=== PATIENT | female | born 1990 | race Caucasian/White ===

== ENCOUNTER 2021-07-07 13:59 | Emergency (ER) | payer SELFPAY ==
[2021-07-07 14:06] VITALS: BP 135/88; PULSE 91; RESP 18; TEMP 36.4; O2SAT 97; BMI 23.8
--- NOTE | 2021-07-07 14:19 | HMH.EDGENADL ---
ED Disposition Clinical Impression: Pyelonephritis Disposition: Home, Self-Care Condition on Discharge: Good Instructions: Kidney Infection Additional Instructions: Please take the cefdinir as prescribed. Please take tylenol and ibuprofen for comfort. You have also been given toradol for comfort. Please follow up with your primary care physician for further management in 2-3 days. Please return if symptoms worsen such as vomiting, fevers, worsening abdominal pain or any other concerning symptoms. Prescriptions: Cefdinir [Omnicef 300mg Capsule] 300 mg PO BID #20 cap Prescription Printed Referrals: Provider,Referral, [Primary Care Provider] - Time of Disposition: 16:35 - Critical Care Critical Care Time: No Attestation: On , the high probability of a clinically significant, sudden or life threatening deterioration of the following system(s) required my full and direct attention, intervention and personal management. The time I documented below is in addition to time spent performing reported procedures but includes the following listed in this critical care notation. Medical Decision Making - Medical Records Medical records reviewed: Yes: I reviewed the patient's medical records. - Timmy Inquiry Pt receiving controlled substance: No Vital Signs: 07/07/21 14:06 07/07/21 16:22 Temperature 97.5 F L 97.5 F L Temperature Source Oral Temporal Artery Scan Pulse Rate 88 Pulse Rate [Right Brachial] 91 H Respiratory Rate 18 16 Blood Pressure 118/72 Blood Pressure [Right Arm] 135/88 Blood Pressure Mean [Right Arm] 103 Blood Pressure Source Automatic Cuff Blood Pressure Source [Right Arm] Automatic Cuff Blood Pressure Position Sitting Blood Pressure Position [Right Arm] Sitting 02 Sat by Pulse Oximetry 97 Oxygen Delivery Method Room Air Room Air - Lab Data Lab results reviewed: Yes: I reviewed the patient's lab results. Lab Results 07/07/21 14:22: WBC 4.3 L, RBC 4.24, Hgb 13.3, Hct 41.8, MCV 98.5, MCH 31.4 H, MCHC 31.9, RDW 14.3, Plt Count 173, MPV 9.7, Neut % (Auto) 63.9, Lymph % (Auto) 29.4, [place] % (Auto) 4.3, Eos % (Auto) 1.4, Baso % (Auto) 1.0, Neut # (Auto) 2.8, Lymph # (Auto) 1.3, [place] # (Auto) 0.2, Eos # (Auto) 0.1, Baso # (Auto) 0.0 07/07/21 14:22: Sodium 140, Potassium 3.4 L, Chloride 105, Carbon Dioxide 28, Anion Gap 10.4, BUN 13, Creatinine 0.80, Estimated Creat Clear 97, Estimated GFR 85, Est GFR ( Amer) 103, Glucose 90, Calcium 8.8, Total Bilirubin 0.1 L, AST 29, ALT 14, Alkaline Phosphatase 33 L, Total Protein 7.1, Albumin 4.5, Globulin 2.6, Albumin/Globulin Ratio 1.7, Amylase 63, Lipase 82 07/07/21 14:22: Urine HCG, Qual Negative 07/07/21 14:22: Urine Color Yellow, Urine Appearance Clear, Urine pH 5.0, Ur Specific [place] >= 1.030, Urine Protein 3+, Urine Glucose (UA) Trace, Urine Ketones Trace, Urine Blood 2+, Urine Nitrate Positive, Urine Bilirubin 2+ A, Urine Urobilinogen >=8.0, Ur Leukocyte Esterase Trace, Urine RBC 10-20, Urine WBC 3-5, Ur Squamous Epith Cells 3-5, Urine Bacteria 1+ Result diagrams: 07/07/21 14:22 07/07/21 14:22 Orders (Tests/Meds): ED MEDICATIONS Discontinued Medications Generic Name Dose Route Start Last Admin Trade Name Freq PRN Reason Stop Dose Admin Ketorolac Tromethamine 30 mg 07/07/21 14:21 07/07/21 14:26 Ketorolac 30mg/Ml Vial IV 07/07/21 14:22 30 mg ONCE ONE Administration Medical Decision Narrative: Mrs. Enamorado is a 30-year-old female with past medical history for recurrent nephrolithiasis who presents to the emergency department with left flank pain for 3 days. Patient is afebrile and hemodynamically stable on arrival. Physical exam remarkable for well-appearing female nontoxic with no CVA tenderness on exam. Patient's abdomen is soft nondistended nonperitoneal ache. Patient denies any systemic signs of infection. Differentials to consider but not limited to include; UTI/pyelonephritis, nephrolithiasis, MSK, pregna
[2021-07-07 14:32] LABS: Appearance,Urine CLEAR (Clear); Blood, Urine 2+ (Negative); Color,Urine YELLOW (Yellow); Glucose,Urine (UA) TRACE (Negative); Ketones,Urine TRACE (Negative); Leukocyte Esterase,Urine TRACE (Negative); Microscopic, Urine URINE MICROSCOPIC (MICROSCOPIC); Nitrate,Urine POSITIVE (Negative); Protein,Urine 3+ (Negative); Specific Gravity, Urine >= 1.030 (1.005-1.030); Urobilinogen,Urine >=8.0 EU/dl (0.2)
[2021-07-07 14:34] LABS: Urine Pregnancy, HCG Qual. Negative (Negative)
[2021-07-07 14:39] LABS: Chloride 105 mmol/L (98-107); Eosinophils # 0.1 K/mm3 (0.0-0.4); Eosinophils % 1.4 % (0.1-12.0); Hematocrit 41.8 % (37.0-47.0); Hemoglobin 13.3 g/dL (12.2-16.2); Lymphocytes # 1.3 K/mm3 (0.7-4.5); Lymphocytes % 29.4 % (10-50); Mean Corpuscular HGB Conc 31.9 g/dL (31.8-35.4); Mean Corpuscular Hemoglobin 31.4 pg (27.0-31.2); Mean Corpuscular Volume 98.5 fl (81-99); Mean Platelet Volume 9.7 fl (7.4-10.4); Monocytes # 0.2 K/mm3 (0.1-1.0); Monocytes % 4.3 % (1.7-9.3); Neutrophils # 2.8 K/mm3 (1.8-7.8); Neutrophils % 63.9 % (37.0-80.0); Platelet Count 173 K/mm3 (142-424); Potassium 3.4 mmoL/L (3.5-5.1); Red Blood Count 4.24 M/mm3 (4.20-5.40); Red Cell Distribution Width 14.3 % (11.5-17.5); Sodium 140 mmol/L (136-145); White Blood Count 4.3 K/mm3 (4.8-10.8)
[2021-07-07 14:41] LABS: Amylase 63 U/L (30-110)
[2021-07-07 14:42] LABS: Alanine Aminotransferase 14 U/L (12-78); Albumin Level 4.5 g/dl (3.5-5.0); Alkaline Phosphatase 33 U/L (38-126); Anion Gap 10.4 mEq/L (5-15); Aspartate Amino Transferase 29 U/L (14-36); Bilirubin,Total 0.1 mg/dl (0.2-1.3); Blood Urea Nitrogen 13 mg/dl (7-17); Calcium 8.8 mg/dl (8.4-10.2); Carbon Dioxide 28 mmol/L (22.0-30.0); Creatinine Clearance Estimated 97 mL/min (50-200); Estimated Glomerular Filt Rate 85 ml/min (>60); GFR (African American) 103 ML/MIN (>60); Glucose 90 mg/dl (74-100); Lipase 82 U/L (23-300)
[2021-07-07 14:46] LABS: Bilirubin,Urine 2+ (Negative)
[2021-07-07 14:47] LABS: Bacteria,Urine 1+ /lpf
[2021-07-07 15:16] LABS: Albumin/Globulin Ratio 1.7 (1.1-1.8); Globulin 2.6 g/dL (1.3-3.2); Total Protein,Serum 7.1 g/dl (6.3-8.2)
[2021-07-07 16:22] VITALS: BP 118/72; PULSE 88; RESP 16; TEMP 36.4; O2SAT 99
== END 2021-07-07 16:23 | disposition home or self-care (01) ==
PROVIDERS: Emergency Provider Student in an Organized Health Care Education/Training Program
DX: N12 Tubulo-interstitial nephritis, not specified as acute or chronic (principal); Z87.442 Personal history of urinary calculi; Z88.0 Allergy status to penicillin
CPT/HCPCS: 80053; 81001; 81025; 82150; 83690; 85025; 96374; 99282

== ENCOUNTER 2023-01-17 13:34 | Emergency (ER) | payer MEDICAID, SELFPAY ==
[2023-01-17 13:52] VITALS: BP 126/73; PULSE 88; RESP 20; TEMP 36.9; O2SAT 99; BMI 26.5
[2023-01-17 13:53] VITALS: BMI 26.5
[2023-01-17 14:15] LABS: Strep Scrn Group A (Rapid) Positive (Negative)
--- NOTE | 2023-01-17 14:35 | HMH.EDGENADL ---
Discharge Plan Disposition Patient Disposition: Home, Self-Care Condition: Good Chief Complaint: Upper Respiratory Infection Prescriptions Prescriptions: New cefdinir 300 mg capsule 300 mg PO BID 10 Days Qty: 20 0RF No Action cefdinir 300 MG capsule 300 mg PO BID Qty: 20 0RF Referrals Follow up/Referrals: Provider,Referral, MD [Primary Care Provider] - See instructions Activity Restrictions/Add. Instructions Additional Instructions/Restrictions: Motrin/Tylenol as needed. Follow-up PCP in 1 to 2 days. Antibiotics as directed Clinical Impressions Clinical Impression: Pharyngitis due to group A beta hemolytic Streptococci Discharge ED Provider: Fidel Cline General Adult HPI General Chief complaint: Upper Respiratory Infection Stated complaint: sore throat Time Seen by Provider: 01/17/23 14:32 Mode of Arrival: Ambulatory Source of Information: Patient Limitations: No Limitations Description of Symptoms (Recalled from ER Triage Doc. by RN): pt to ed c/o sore throat and non-productive cough x2 days. History of Present Illness HPI narrative: 32yo F presents the ER secondary to sore throat and nonproductive cough x2 days. Denies fever. Concern for strep throat. No history of group a strep pharyngitis, no known sick contact. Reports pain with swallowing Related Data Previous Rx's Medication Instructions Recorded cefdinir 300 mg capsule 300 mg PO BID #20 caps 07/07/21 cefdinir 300 mg capsule 300 mg PO BID 10 days #20 caps 01/17/23 Allergies Allergy/AdvReac Type Severity Reaction Status Date / Time Penicillins Allergy Verified 07/07/21 14:11 [facility] Disclaimer: The information contained in this section may have been updated after the patient was seen, as this information can be updated by other users. Social History Smoking Status: Current every day smoker alcohol intake: never current occupational status: other Travel in the last 8 weeks: None ROS Obtained: Yes Systems reviewed as appropriate & no additional complaints except as documented Physical Exam General General appearance: alert and in no apparent distress Head Head exam: atraumatic and normocephalic Eye Eye exam: Present PERRL ENT ENT exam: Present mucous membranes moist and other; Absent normal oropharynx (Erythematous posterior pharynx with mild exudate) Neck Neck exam: Present trachea midline, tenderness and lymphadenopathy (Left) Respiratory Respiratory exam: Present normal lung sounds bilaterally; Absent respiratory distress Cardiovascular Cardiovascular exam: Present regular rate and normal rhythm Abdominal Exam Abdominal exam: Present soft; Absent distention Extremities Exam Extremities exam: Present normal capillary refill; Absent tenderness Neurological Exam Neurological exam: Present alert, oriented X3 and CN II-XII intact Skin Skin exam: Present warm and dry Medical Decision Making Medical Records Medical records reviewed: Yes I reviewed the patient's medical records. Timmy Inquiry Pt receiving controlled substance: No Vital Signs: 01/17/23 13:52 Temperature 98.4 F Temperature Source Oral Pulse Rate [Left Radial] 88 Respiratory Rate 20 Blood Pressure [Right Arm] 126/73 Blood Pressure Mean [Right Arm] 90 02 Sat by Pulse Oximetry 99 Oxygen Delivery Method Room Air Lab Data Lab results reviewed: Yes I reviewed the patient's lab results. Lab Results 01/17/23 13:50: Group A Strep Rapid Positive A Orders (Tests/Meds): ORDERS Category Date Time Status Strep Scrn Group A (Rapid) Stat Lab 01/17/23 13:50 Completed Medical Decision Narrative: 32yo F evaluated for strep throat. Group A strep swab obtained through triage and positive. Patient is allergic to penicillin but has tolerated cefdinir in the past. Cefdinir 300 mg twice daily x10-day provided. Encouraged to follow-up with PCP in 1 to 2 days.
[2023-01-17 14:45] VITALS: BP 122/70; PULSE 80; RESP 16; TEMP 36.7; O2SAT 99
== END 2023-01-17 14:45 | disposition home or self-care (01) ==
PROVIDERS: Emergency Provider Family Medicine
DX: J02.0 Streptococcal pharyngitis (principal); F17.200 Nicotine dependence, unspecified, uncomplicated
CPT/HCPCS: 87430; 99283; 99284

== ENCOUNTER 2023-08-07 07:09 | Emergency (ER) | payer MEDICAID, SELFPAY ==
[2023-08-07 07:12] VITALS: BP 125/77; PULSE 84; O2SAT 98
--- NOTE | 2023-08-07 07:13 | HMH.EDGENADL ---
Discharge Plan Disposition Patient Disposition: Home, Self-Care Condition: Good Chief Complaint: Dental/Oral Prescriptions Prescriptions: No Action cefdinir 300 MG capsule 300 mg PO BID Qty: 20 0RF cefdinir 300 mg capsule 300 mg PO BID 10 Days Qty: 20 0RF Referrals Follow up/Referrals: Dov Keys MD [Primary Care Provider] - See instructions Clinical Impressions Clinical Impression: Dental abscess Instructions Patient Instructions: Tooth Abscess Discharge ED Provider: Dinora Johnson General Adult HPI General Chief complaint: Dental/Oral Stated complaint: right side swollen on face abcest tooth pain Time Seen by Provider: 08/07/23 07:12 History of Present Illness HPI narrative: 32-year-old female with no significant past medical history coming into the ED with complaints of right-sided facial swelling. Patient notes that since yesterday, she has been experiencing a right upper dental pain. Patient was concerned by an abscess and thus went to her primary care doctor started on clindamycin. This morning, upon awakening, patient noted significant right-sided facial swelling in her right-sided infraorbital region. Patient notes her cheek is more erythematous and swollen. Patient denies any pain with extraocular movements. Related Data Previous Rx's Medication Instructions Recorded cefdinir 300 mg capsule 300 mg PO BID #20 caps 07/07/21 cefdinir 300 mg capsule 300 mg PO BID 10 days #20 caps 01/17/23 Allergies Allergy/AdvReac Type Severity Reaction Status Date / Time Penicillins Allergy Verified 07/07/21 14:11 [facility] Disclaimer: The information contained in this section may have been updated after the patient was seen, as this information can be updated by other users. Social History (Updated 01/17/23 @ 14:40 by Fidel Cline DO) Smoking Status: Never smoker alcohol intake: never current occupational status: other Travel in the last 8 weeks: None ROS Obtained: Yes All systems reviewed & no additional complaints except as documented Physical Exam General General appearance: alert and in no apparent distress Head Head exam: atraumatic, normocephalic and normal inspection Eye Eye exam: Present normal appearance, PERRL and EOMI; Absent scleral icterus or nystagmus ENT ENT exam: Present normal exam, mucous membranes moist and normal external ear exam Neck Neck exam: Present normal inspection, full ROM and trachea midline Chest Chest inspection: Present normal inspection and symmetric chest wall rise; Absent tenderness Respiratory Respiratory exam: Present normal lung sounds bilaterally; Absent respiratory distress, wheezes or accessory muscle use Cardiovascular Cardiovascular exam: Present regular rate, normal rhythm and normal heart sounds Abdominal Exam Abdominal exam: Present soft; Absent distention, tenderness, guarding, rebound, rigidity, trauma, ascites or pulsatile mass Extremities Exam Extremities exam: Present normal inspection and full ROM; Absent tenderness Back Exam Back exam: Present normal inspection and full ROM; Absent tenderness Neurological Exam Neurological exam: Present alert, oriented X3 and normal gait; Absent motor sensory deficit Psychiatric Psychiatric exam: Present normal affect and normal mood Skin Skin exam: Present warm, dry, normal color and erythema (Swelling and erythema to R face) Medical Decision Making Medical Records Medical records reviewed: Yes I reviewed the patient's medical records. Timmy Inquiry Pt receiving controlled substance: No Vital Signs: 08/07/23 07:14 08/07/23 07:12 Temperature 97.7 F Temperature Source Oral Pulse Rate 84 Pulse Rate [Right Radial] 84 Respiratory Rate 20 Blood Pressure 125/77 Blood Pressure [Right Arm] 125/77 Blood Pressure Mean [Right Arm] 93 Blood Pressure Source [Right Arm] Automatic Cuff Blood Pressure Position [Right Arm] Sitting 02 Sat by Pulse Oximetry 98 98 Oxygen Delivery Method Room Air Room Air Lab Data Lab results reviewed: Yes I reviewed the patient's lab results. Lab Results 08/07/23 07:24: WBC 6.8, RBC 3.77 L, Hgb 11.5 L, Hct 34.6 L, MCV 91.6, MCH 30.5, MCHC 33.3, RDW 13.8, Plt Count 143, MPV 9.6, Neut % (Auto) 77.6, Lymph % (Auto) 16.3, [place] % (Auto) 4.6, Eos % (Auto) 1.3, Baso % (Auto) 0.3, Neut # (Auto) 5.3, Lymph # (Auto) 1.1, [place] # (Auto) 0.3, Eos # (Auto) 0.1, Baso # (Auto) 0.0, Sodium 139, Potassium 3.4 L, Chloride 106, Carbon Dioxide 27, Anion Gap 9.4, BUN 10, Creatinine 0.60, Estimated Creat Clear 143, Estimated GFR 117, Est GFR ( Amer) 141, Glucose 98, Calcium 8.3 L, Total Bilirubin 0.5, AST 26, ALT 17, Alkaline Phosphatase 41, C-Reactive Protein 56.4 H, Total Protein 6.3, Albumin 3.7, Globulin 2.6, Albumin/Globulin Ratio 1.4, Serum HCG, Qual Negative 08/07/23 07:24 08/07/23 07:24 Orders (Tests/Meds): ED MEDICATIONS Generic Name Dose Route Start Last Admin Trade Name Freq PRN Reason Stop Dose Admin Sodium Chloride 10 ml 08/07/23 08:36 08/07/23 08:37 Sodium Chloride 0.9% 10ml Syr (Rad Only) IV 09/06/23 08:35 10 ml NEEDED PRN Administration Maintain IV Site Discontinued Medications Generic Name Dose Route Start Last Admin Trade Name Freq PRN Reason Stop Dose Admin Iopamidol 100 ml 08/07/23 08:36 08/07/23 08:37 Iopamidol-370 (76%);100ml Bottle IV 08/07/23 08:37 100 ml ONCE ONE Administration ORDERS Category Date Time Status CT facial bones w con Stat Cat Scan 08/07/23 07:16 Completed CBC w/Auto Diff [Complete Blood Count Auto Diff] Stat Lab 08/07/23 07:24 Completed CMP [Comprehensive Metabolic Panel] Stat Lab 08/07/23 07:24 Completed CRP [C-Reactive Protein] Stat Lab 08/07/23 07:24 Completed Serum [HCG Qualitative, Serum] Stat Lab 08/07/23 07:24 Completed Medical Decision Narrative: In summary, 32-year-old female with no significant past medical history coming into the ED with complaints of right-sided facial swelling. Patient notes that since yesterday, she has been experiencing a right upper dental pain. Patient was concerned by an abscess and thus went to her primary care doctor started on clindamycin. This morning, upon awakening, patient noted significant right-sided facial swelling in her right-sided infraorbital region. Patient notes her cheek is more erythematous and swollen. Patient denies any pain with extraocular movements. Patient was afebrile, hemodynamically stable, in no respiratory distress, and nontoxic in appearance upon arrival and throughout the entire stay in the ED. Physical examination was unremarkable aside from significant swelling and erythema to R infraorbital region, no pain with EOMI, including lungs CTAB, normal cardiac auscultation, benign abdominal exam with no focal TTP, and no acute neurological deficit. The DDx includes, but is not limited to, dental abscess vs cavity vs preseptal cellulitis vs orbital celllulitis. All of these have been considered, however ruling out the most morbid conditions drove my clinical assessment and thus the following laboratory and/or radiographic evaluation was conducted to the appropriate extent based on history and physical examination. All ordered laboratory studies independently reviewed and interpreted by myself and pertinent for: - CBC was unremarkable for any actionable leukocytosis, anemia, or thrombocytopenia. - CMP was unremarkable for any actionable electrolyte derangement, elevated creatinine, or transaminitis. - CRP elevated to 56.4 X-ray/CT/US studies independently reviewed and interpreted by myself and notable for: - CT Face w/ con: Small abscess noted approximately 14 x 4 cm in size with surrounding cellulitis, but no obvious cortical bone destruction. At this time, given unremarkable workup and/or symptomatic relief, as well as the fact that patient continued to remain well-appearing, it was felt that the patient was safe to be discharged home with close follow-up with dentistry. Given that the patient was already on clindamycin and started the course yesterday, the need for different antibiotics is deemed unnecessary at this time. The patient/parents were comfortable and in agreement with this plan. Patient instructed to follow up with [employer]/PCP. The patient/parents were given strict return precautions prior to being discharged from the emergency department. All questions were answered. Dinora Johnson MD Emergency Medicine Critical Care Critical Care Time Critical Care Time: No
[2023-08-07 07:14] VITALS: BP 125/77; PULSE 84; RESP 20; TEMP 36.5; O2SAT 98; BMI 26.9
--- NOTE | 2023-08-07 07:16 | CT_ITS ---
FINAL REPORT TECHNIQUE: Multiple axial CT sections were performed through the face with IV contrast. Coronal and sagittal reconstruction images were performed. This study was performed with techniques to keep radiation doses as low as reasonably achievable (ALARA). Individualized dose reduction techniques using automated exposure control or adjustment of mA and/or kV according to the patient's size were employed. CLINICAL HISTORY: Dental abscess, R significant swelling and erythem COMPARISON: None FINDINGS: CT examination of the facial bones and sinuses was obtained in this patient with a history of a right sided dental abscess. There is stranding in the premaxillary region, on the right side, consistent with cellulitis. There is a small abscess along the right maxillary alveolar ridge, paramidline, measuring 14 x 4 mm in size. No obvious cortical destruction is identified. No air-fluid levels are identified in the paranasal sinuses. IMPRESSION: There is a small abscess along the right maxillary alveolar ridge, paramidline, measuring 14 x 4 mm in size, without evidence of obvious cortical bone destruction. Surrounding cellulitis is present. Reviewed, Interpreted and Dictated by Kashif Pack MD Transcribed by Michelle Olivo Authenticated and [facility]
[2023-08-07 07:33] LABS: Basophils % 0.3 % (0.1-2.0); Eosinophils # 0.1 K/mm3 (0.0-0.4); Eosinophils % 1.3 % (0.1-12.0); Hematocrit 34.6 % (37.0-47.0); Hemoglobin 11.5 g/dL (12.2-16.2); Lymphocytes # 1.1 K/mm3 (0.7-4.5); Lymphocytes % 16.3 % (10-50); Mean Corpuscular HGB Conc 33.3 g/dL (31.8-35.4); Mean Corpuscular Hemoglobin 30.5 pg (27.0-31.2); Mean Corpuscular Volume 91.6 fl (81-99); Mean Platelet Volume 9.6 fl (7.4-10.4); Monocytes # 0.3 K/mm3 (0.1-1.0); Monocytes % 4.6 % (1.7-9.3); Neutrophils # 5.3 K/mm3 (1.8-7.8); Neutrophils % 77.6 % (37.0-80.0); Platelet Count 143 K/mm3 (142-424); Red Blood Count 3.77 M/mm3 (4.20-5.40); Red Cell Distribution Width 13.8 % (11.5-17.5); White Blood Count 6.8 K/mm3 (4.8-10.8)
[2023-08-07 07:40] LABS: Alanine Aminotransferase 17 U/L (12-78); Albumin Level 3.7 g/dl (3.5-5.0); Albumin/Globulin Ratio 1.4 (1.1-1.8); Alkaline Phosphatase 41 U/L (38-126); Anion Gap 9.4 mEq/L (5-15); Aspartate Amino Transferase 26 U/L (14-36); Bilirubin,Total 0.5 mg/dl (0.2-1.3); Blood Urea Nitrogen 10 mg/dl (7-17); Calcium 8.3 mg/dl (8.4-10.2); Carbon Dioxide 27 mmol/L (22.0-30.0); Chloride 106 mmol/L (98-107); Creatinine Clearance Estimated 143 mL/min (50-200); Estimated Glomerular Filt Rate 117 ml/min (>60); GFR (African American) 141 ML/MIN (>60); Globulin 2.6 g/dL (1.3-3.2); Glucose 98 mg/dl (74-100); Potassium 3.4 mmoL/L (3.5-5.1); Sodium 139 mmol/L (136-145); Total Protein,Serum 6.3 g/dl (6.3-8.2)
[2023-08-07 07:45] LABS: C-Reactive Protein 56.4 mg/L (0-4)
[2023-08-07 08:23] LABS: HCG Qualitative, Serum Negative (Negative)
[2023-08-07] MEDS: IOPAMIDOL-370 (76%);100ML BOTTLE 100 ML IV (08:37)
[2023-08-07] MEDS: SODIUM CHLORIDE 0.9% 10ML SYR (RAD ONLY) 10 ML IV (08:37)
[2023-08-07 09:58] VITALS: BP 132/67; PULSE 80; RESP 18; TEMP 37.1; O2SAT 99
== END 2023-08-07 09:59 | disposition home or self-care (01) ==
PROVIDERS: Emergency Provider Emergency Medicine; PCP Internal Medicine
DX: L03.211 Cellulitis of face (principal); R22.0 Localized swelling, mass and lump, head
CPT/HCPCS: 70487; 80053; 84703; 85025; 86140; 99285; Q9967

== ENCOUNTER 2024-05-28 16:08 | Emergency (ER) | payer MEDICAID, SELFPAY ==
--- NOTE | 2024-05-28 16:21 | US_ITS ---
PROCEDURE INFORMATION: Exam: US , Transvaginal Exam date and time: 05/28/2024 4:20 PM Age: 33 years old Clinical indication: Lmp or gestational age (in weeks): 10w3d; Other: Bleeding; ; Additional info: Vag bleeding preg, no prior US TECHNIQUE: Imaging protocol: Real-time transvaginal obstetrical ultrasound of the maternal pelvis with image documentation. Transvaginal imaging was used for better evaluation of the fetus, adnexa, and/or cervix. COMPARISON: No relevant prior studies available. FINDINGS: Gestation: There is a single live intrauterine gestation with pole measuring approximately 34.14 mm corresponding to an estimated gestational age of 10 weeks and 2 days +/-10 days. A yolk sac is present measuring 6.1 mm. No subchorionic hemorrhage. heart rate: 170 bpm BIOMETRY: Gestational age (AUA): 10 w 3 d plus/-2 weeks Estimated due date (AUA): 12/21/2024 [place] rump length (CRL): 34.17 mm. EGA (CRL) is 10 w 2 d plus-minus 2 weeks MATERNAL: Right ovary/adnexa: Right ovary measures 3.24 cm x 1.78 cm x 1.67 cm. Right ovarian volume is 5.04 mL. Duplex assessment demonstrates normal flow in both ovaries. Left ovary/adnexa: Left ovary measures 1.93 cm x 1.67 cm x 1.6 cm. Left ovarian volume is 2.7 mL IMPRESSION: 1. Single live intrauterine gestation with estimated gestational age based on crown-rump length of approximately 10 weeks and 2 days +/-10 days. 2. Normal appearance to the ovaries bilaterally. 3. No subchorionic hemorrhage.
--- NOTE | 2024-05-28 16:22 | PC.NURSE ---
Dr. Kiran states she will need u/s
[2024-05-28 16:24] VITALS: BP 163/108; PULSE 102; RESP 16; TEMP 36.6; O2SAT 96; BMI 26.5
[2024-05-28 16:39] LABS: Basophils % 0.4 % (0.1-2.0); Eosinophils # 0.1 K/mm3 (0.0-0.4); Eosinophils % 0.7 % (0.1-12.0); Hematocrit 35.4 % (37.0-47.0); Hemoglobin 12.5 g/dL (12.2-16.2); Lymphocytes # 1.8 K/mm3 (0.7-4.5); Mean Corpuscular HGB Conc 35.2 g/dL (31.8-35.4); Mean Corpuscular Hemoglobin 31.5 pg (27.0-31.2); Mean Corpuscular Volume 89.5 fl (81-99); Mean Platelet Volume 9.3 fl (7.4-10.4); Monocytes # 0.4 K/mm3 (0.1-1.0); Monocytes % 4.2 % (1.7-9.3); Neutrophils # 6.1 K/mm3 (1.8-7.8); Neutrophils % 72.6 % (37.0-80.0); Platelet Count 194 K/mm3 (142-424); Red Blood Count 3.95 M/mm3 (4.20-5.40); Red Cell Distribution Width 14.7 % (11.5-17.5); White Blood Count 8.3 K/mm3 (4.8-10.8)
[2024-05-28 16:42] LABS: Albumin Level 4.5 g/dl (3.5-5.0); Chloride 103 mmol/L (98-107); Sodium 136 mmol/L (136-145)
[2024-05-28 16:45] LABS: Alanine Aminotransferase 16 U/L (12-78); Albumin/Globulin Ratio 1.7 (1.1-1.8); Alkaline Phosphatase 34 U/L (38-126); Aspartate Amino Transferase 26 U/L (14-36); Bilirubin,Total 0.5 mg/dl (0.2-1.3); Blood Urea Nitrogen 4 mg/dl (7-17); Calcium 9.1 mg/dl (8.4-10.2); Carbon Dioxide 22 mmol/L (22.0-30.0); Creatinine Clearance Estimated 168 mL/min (50-200); Estimated Glomerular Filt Rate 143 ml/min (>60); GFR (African American) 173 ML/MIN (>60); Globulin 2.7 g/dL (1.3-3.2); Glucose 96 mg/dl (74-100); Total Protein,Serum 7.2 g/dl (6.3-8.2)
[2024-05-28 16:52] LABS: Microscopic, Urine URINE MICROSCOPIC (MICROSCOPIC)
[2024-05-28 16:53] LABS: Appearance,Urine CLEAR (Clear); Bilirubin,Urine Negative (Negative); Blood, Urine 3+ (Negative); Color,Urine YELLOW (Yellow); Glucose,Urine (UA) Negative (Negative); Ketones,Urine Negative (Negative); Leukocyte Esterase,Urine Negative (Negative); Nitrate,Urine Negative (Negative); PH,Urine 6.5 (5.0-8.5); Protein,Urine TRACE (Negative); Specific Gravity, Urine 1.025 (1.005-1.030); Urobilinogen,Urine 0.2 EU/dl (0.2)
--- NOTE | 2024-05-28 16:53 | PC.NURSE ---
Dr Kiran notified of a critical potassium of 3.0
--- NOTE | 2024-05-28 16:58 | HMH.EDGENADL ---
Discharge Plan Disposition Patient Disposition: Home, Self-Care Condition: Good Prescriptions Prescriptions: No Action cefdinir 300 MG capsule 300 mg PO BID Qty: 20 0RF cefdinir 300 mg capsule 300 mg PO BID 10 Days Qty: 20 0RF ibuprofen 800 mg tablet 800 mg PO Q6H PRN (Reason: pain) Qty: 30 0RF Referrals Follow up/Referrals: Julianne Fritz DO [Staff Physician] - See instructions Chandler Valadez MD [Staff Physician] - See instructions Beverly Shook APRN [Primary Care Provider] - See instructions Angelina Ng DO [Staff Physician] - See instructions Activity Restrictions/Add. Instructions Additional Instructions/Restrictions: You were evaluated in the emergency department today. You were found to have a subchorionic hemorrhage, which is very common in early . Your baby has a viable heartbeat at this time and is measuring 10 weeks and 3 days. I encourage pelvic rest as well as avoiding heavy lifting. Please follow-up closely with OB. You were given RhoGAM injections today. Return to the emergency department for new or worsening symptoms. A subchorionic hemorrhage (FRANTZ), or hematoma, is a collection of blood between the placenta and the uterus. FRANTZ usually develops late in the first trimester. The bleeding usually reabsorbs into your body by 20 weeks of . Most pregnancies progress without problems. You may have occasional spotting or light bleeding throughout your . DISCHARGE INSTRUCTIONS: Return to the emergency department if: You have abdominal pain. You have a sudden increase in bleeding. Contact your healthcare provider if: Your bleeding has increased. You have questions or concerns about your condition or care. Pelvic rest: Do not have sex, douche, or use tampons. Do not strain or lift heavy objects. These activities may cause contractions or infection and put you or your baby at risk. You may need to rest more than usual. Do daily activities as directed. Clinical Impressions Clinical Impression: Subchorionic hematoma, Vaginal bleeding during , Hypokalemia, Rh negative status during Stand Alone Forms Stand Alone Forms: Work/School Release Instructions Patient Instructions: DI for Vaginal Bleeding During , DI for Subchorionic Hemmorhage Print Language Print Language: Chinese Discharge ED Provider: Nella Kiran General Adult HPI General Chief complaint: OB/Uterine Contractions Stated complaint: 14 wks , vaginal bleeding Time Seen by Provider: 05/28/24 16:12 Mode of Arrival: Ambulatory Source of Information: Patient Limitations: No Limitations Description of Symptoms (Recalled from ER Triage Doc. 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 pt states she is approximately 14wks based off lab work she had two days ago. pt does not have an OB at this time. pt denies pain. pt does report nausea. pt reports her PCP took her off her seroquel 2d ago when finding out she was . pts only current med is amytriptiline. pt states this is her 5th . pt has 3 living children. pt's infant from her third at 3 months old. She reports during the there was a complication and the fetus was not getting adequate oxygen to the brain. History of Present Illness HPI narrative: This patient is a 33-year-old female A1 presented to the emergency department for evaluation with concern for vaginal bleeding during . Patient notes that she started having bright red blood vaginal bleeding today while at work. She notes that she felt like she had peed herself and looked and her underwear was soaked in blood. She also notes that she had put toilet paper in her underwear which then became saturated with blood as well. No significant abdominal pain or other concerns noted. No recent vaginal intercourse or penetration. Patient reports that she had her last menstrual period in February and has had positive test at home. She has not yet had confirmatory ultrasound. She states that her doctor believes that she is approximate 14 weeks . She denies any complications with thus far. She does note that she is a smoker and she also notes that she had previously been taking Seroquel and drinking alcohol until she found out that she was . Related Data Previous Rx's ?Medication ?Instructions ?Recorded cefdinir 300 mg capsule 300 mg PO BID #20 caps 07/07/21 cefdinir 300 mg capsule 300 mg PO BID 10 days #20 caps 01/17/23 ibuprofen 800 mg tablet 800 mg PO Q6H PRN pain #30 tabs 08/07/23 Allergies Allergy/AdvReac Type Severity Reaction Status Date / Time Penicillins Allergy Hives Verified 05/28/24 16:32 [facility] Disclaimer: The information contained in this section may have been updated after the patient was seen, as this information can be updated by other users. Social History Smoking Status: Current every day smoker alcohol intake: never current occupational status: other Travel in the last 8 weeks: None Other Medical History Have you received the Flu Vaccine for this season: No Have you received the Pneumonia Vaccine: No ROS Obtained: Yes All systems reviewed & no additional complaints except as documented Physical Exam General General appearance: alert and in no apparent distress Head Head exam: atraumatic and normocephalic Eye Eye exam: Present normal appearance, PERRL and EOMI ENT ENT exam: Present normal exam, normal oropharynx, mucous membranes moist and normal external ear exam Neck Neck exam: Present normal inspection, full ROM and trachea midline; Absent tenderness Chest Chest inspection: Present normal inspection and symmetric chest wall rise; Absent tenderness Respiratory Respiratory exam: Present normal lung sounds bilaterally; Absent respiratory distress, wheezes, stridor or accessory muscle use Cardiovascular Cardiovascular exam: Present regular rate and normal rhythm Abdominal Exam Abdominal exam: Present soft; Absent distention, tenderness or guarding Extremities Exam Extremities exam: Present normal inspection, full ROM and normal capillary refill; Absent tenderness or edema Back Exam Back exam: Present normal inspection and full ROM; Absent tenderness Neurological Exam Neurological exam: Present alert, oriented X3, CN II-XII intact and normal gait; Absent motor sensory deficit Psychiatric Psychiatric exam: Present normal affect and normal mood Skin Skin exam: Present warm and dry Medical Decision Making Medical Records Medical records reviewed: Yes I reviewed the patient's medical records. Screening: Per USPSTF and CDC recommendations, given the prevalence of disease in our region, it is our hospital?s policy to screen for HIV and viral Hepatitis for all patients aged 18 and over and those with ongoing risk factors. Timmy Inquiry Pt receiving controlled substance: No Vital Signs: 05/28/24 16:24 05/28/24 17:19 05/28/24 17:53 Temperature 97.9 F 97.9 F Temperature Source Oral Pulse Rate 113 H 70 Pulse Rate [Left] 102 H Respiratory Rate 16 18 Blood Pressure 143/96 H 118/79 Blood Pressure [Right Arm] 163/108 H Blood Pressure Mean 105 Blood Pressure Mean [Right Arm] 126 Blood Pressure Source [Right Arm] Automatic Cuff Blood Pressure Position [Right Arm] Sitting 02 Sat by Pulse Oximetry 96 98 Oxygen Delivery Method Room Air Room Air Room Air Lab Data Lab results reviewed: Yes I reviewed the patient's lab results. Lab Results 05/28/24 16:14: Urine Color Yellow, Urine Appearance Clear, Urine pH 6.5, Ur Specific [place] 1.025, Urine Protein Trace, Urine Glucose (UA) Negative, Urine Ketones Negative, Urine Blood 3+ A, Urine Nitrate Negative, Urine Bilirubin Negative, Urine Urobilinogen 0.2, Ur Leukocyte Esterase Negative, Urine RBC Tntc, Urine WBC Tntc, Ur Squamous Epith Cells 5-10, Urine Bacteria 1+ 05/28/24 16:20: WBC 8.3, RBC 3.95 L, Hgb 12.5, Hct 35.4 L, MCV 89.5, MCH 31.5 H, MCHC 35.2, RDW 14.7, Plt Count 194, MPV 9.3, Neut % (Auto) 72.6, Lymph % (Auto) 22.0, [place] % (Auto) 4.2, Eos % (Auto) 0.7, Baso % (Auto) 0.4, Neut # (Auto) 6.1, Lymph # (Auto) 1.8, [place] # (Auto) 0.4, Eos # (Auto) 0.1, Baso # (Auto) 0.0, Sodium 136, Potassium 3.0 L, Chloride 103, Carbon Dioxide 22, Anion Gap 14.0, BUN 4 L, Creatinine 0.50 L, Estimated Creat Clear 168, Estimated GFR 143, Est GFR ( Amer) 173, Glucose 96, Calcium 9.1, Total Bilirubin 0.5, AST 26, ALT 16, Alkaline Phosphatase 34 L, Total Protein 7.2, Albumin 4.5, Globulin 2.7, Albumin/Globulin Ratio 1.7, HCG, Quant [id number] H, Blood Type A Negative, Antibody Screen Negative 05/28/24 16:20 05/28/24 16:20 Orders (Tests/Meds): ED MEDICATIONS Discontinued Medications Generic Name Dose Route Start Last Admin Trade Name Freq PRN Reason Stop Dose Admin Potassium Chloride 40 meq 05/28/24 16:58 05/28/24 17:04 Potassium Chloride 20meq Tab PO 05/28/24 16:59 40 meq ONCE ONE Administration Rho Immune Globulin 300 mcg 05/28/24 17:28 05/28/24 17:42 Rho(D) Immune Globulin 1,500 Unit (300mcg) Syringe IM 05/28/24 17:29 300 mcg ONCE ONE Administration ORDERS Category Date Time Status Type and Screen Stat BBK 05/28/24 16:20 Completed CBC w/Auto Diff [Complete Blood Count Auto Diff] Stat Lab 05/28/24 16:20 Completed CMP [Comprehensive Metabolic Panel] Stat Lab 05/28/24 16:20 Completed HCG,Quantitative Stat Lab 05/28/24 16:20 Completed HIV (1&2) Antibody Rapid Stat Lab 05/28/24 16:20 Received Hep C Ab with Reflex to RNA Stat Lab 05/28/24 16:20 Received UA [Urinalysis and Microscopic] Stat Lab 05/28/24 16:14 Completed Urine Culture Stat Micro 05/28/24 16:14 Received US OB transvaginal Stat Ultrasound 05/28/24 16:21 Completed Medical Decision Narrative: In summary, this patient is a 33-year-old female presenting to the Emergency Department for evaluation of vaginal bleeding affecting . Differential diagnoses considered include but are not limited to subchorionic hemorrhage, threatened , missed , inevitable , ectopic . Ruling out the most morbid conditions drove assessment. It should be noted patient's history includes tobacco use which is not at goal therapy. This complicates all aspects of care by increasing patient's risk for morbidity. On exam, the patient is lying in bed in no acute distress with benign abdominal exam. Workup included CBC, CMP, urinalysis, quantitative hCG, type and screen, and transvaginal ultrasound. Patient declines any significant pain or other concerns at this time, so no medications were given. I independently interpreted ultrasound prior to the radiologist read and noted concerns for possible small subchorionic hemorrhage as well as a viable intrauterine fetus with heartbeat measuring estimated 10 weeks and 3 days. Please see their read for final interpretation. Labs were obtained that demonstrated reassuring CBC, reassuring chemistry with the exception of mild hypokalemia. Oral replacement of potassium was ordered. hCG is significant elevated as expected. Urine is contaminated with some skin cells and demonstrates blood in the setting of vaginal bleeding but no leukocyte esterase or nitrates. She denies urinary symptoms. Blood type is A-, and she states that she has had to receive RhoGAM with prior . She was given RhoGAM here. Ultimately, I feel the patient is appropriate for discharge home with close OB follow-up and instructions for pelvic rest. She was given strict return precautions and was discharged after all questions were answered. Critical Care Critical Care Time Critical Care Time: No
[2024-05-28] MEDS: POTASSIUM CHLORIDE 20MEQ TAB 40 MEQ PO (17:04)
[2024-05-28 17:19] VITALS: BP 143/96; PULSE 113; O2SAT 98
[2024-05-28 17:27] LABS: RBC,Urine TNTC #/hpf (0-3); WBC,Urine TNTC #/hpf (0-3)
[2024-05-28 17:28] LABS: Bacteria,Urine 1+ /lpf
[2024-05-28] MEDS: RHO(D) IMMUNE GLOBULIN 1,500 UNIT (300MCG) SYRINGE 300 MCG IM (17:42)
[2024-05-28 17:53] VITALS: BP 118/79; PULSE 70; RESP 18; TEMP 36.6; O2SAT 98
[2024-05-28 18:03] LABS: HCG,Quantitative 165860 mIU/ml (0-5.42)
[2024-05-28 18:32] LABS: HIV (1&2) Antibody Rapid NONREACTIVE (NONREACTIVE)
== END 2024-05-28 17:59 | disposition home or self-care (01) ==
PROVIDERS: Emergency Provider Emergency Medicine; PCP Nurse Practitioner
DX: O46.90 Antepartum hemorrhage, unspecified, unspecified trimester (principal); E87.6 Hypokalemia; O26.899 Other specified pregnancy related conditions, unspecified trimester; O41.8X90 Other specified disorders of amniotic fluid and membranes, unspecified trimester, not applicable or unspecified
CPT/HCPCS: 76817; 80053; 81001; 84702; 85025; 86803; 86850; 87086; 87389; 96372; 99283; J2790

== ENCOUNTER 2024-06-24 15:40 | Outpatient (CLI) | payer MEDICAID, SELFPAY | END 2024-06-24 23:59 | disposition home or self-care (01) | LOC: LAB.DROPOF 06-25 15:40 | PROVIDERS: PCP Obstetrics & Gynecology; Visit Provider Obstetrics & Gynecology | DX: Z34.90 Encounter for supervision of normal pregnancy, unspecified, unspecified trimester (principal) | CPT/HCPCS: 87086 ==

== ENCOUNTER 2024-07-07 14:39 | Emergency (ER) | payer MEDICAID, SELFPAY ==
[2024-07-07 14:46] VITALS: BP 143/83; PULSE 94; RESP 18; TEMP 36.5; O2SAT 99; BMI 26.0
[2024-07-07 15:10] LABS: Coronavirus 19, PCR Not Detected (NotDetected); Influenza B, PCR Not Detected (NotDetected)
[2024-07-07 16:24] LABS: Influenza A, PCR Detected (NotDetected)
--- NOTE | 2024-07-07 16:37 | HMH.EDGENADL ---
Discharge Plan Disposition Patient Disposition: Home, Self-Care Prescriptions Prescriptions: No Action ondansetron HCl 4 mg tablet 4 mg PO DAILY Patient Comments: TAKE 1 TABLET BY MOUTH EVERY 6 HOURS FOR 90 DAYS. amitriptyline 25 mg tablet 25 mg PO DAILY Patient Comments: TAKE 1 TABLET BY MOUTH EVERY DAY AT NIGHT hydroxyzine HCl 25 mg tablet 25 mg PO HS Patient Comments: TAKE 1 TABLET BY MOUTH 3 TIMES DAILY NEEDED. INDICATIONS: HYPEREMESIS OF promethazine 12.5 mg tablet 12.5 mg PO TID PRN (Reason: nausea and vomiting) Qty: 30 2RF diphenhydramine HCl [Unisom SleepGels] 50 mg capsule 50 mg PO HS Qty: 30 1RF vit-iron fum-folic ac [ Tablet] 28 mg iron- 800 mcg tablet 1 tab PO DAILY Qty: 30 2RF Referrals Follow up/Referrals: Beverly Shook APRN [Primary Care Provider] - See instructions Activity Restrictions/Add. Instructions Additional Instructions/Restrictions: Call your family doctor to establish care for this visit to the emergency department and schedule follow-up within 48 hours to ensure improvement. If you have any worsening of your condition or any other concerning signs or symptoms, return to the emergency department or your primary care doctor for further evaluation. Tylenol and antihistamine for symptomatic body aches, fevers and cough. Clinical Impressions Clinical Impression: Influenza A Instructions Patient Instructions: Influenza Print Language Print Language: Sinhala Discharge ED Provider: Bob Mendez General Adult HPI General Chief complaint: Upper Respiratory Infection Stated complaint: congestion, SOA, Time Seen by Provider: 07/07/24 16:26 Mode of Arrival: Ambulatory Source of Information: Patient Limitations: No Limitations Description of Symptoms (Recalled from ER Triage Doc. by RN): Pt presents with c/o nasal and chest congestion x 1 week. Seen by PCP had negative covid/flu/strep swab. Pt states she has a productive cough. Pt is also 16 weeks . History of Present Illness HPI narrative: Please note that above description of symptoms, in this electronic medical record under categorization of recalled from ER triage doctor by RN are reflective of an initial nursing assessment, however, is not reflective of my full history and physical exam that was personally taken and clarified. Consequentially, this preceding description of symptoms, which may include the patient's categorized chief complaint in the EMR, do not reflect my personal clinical impression, and the ultimate description of history of present illness and patient stated complaints should be deferred to this section of the note. Unless stated otherwise or congruent with this section of the note, additional signs, symptoms, or incongruence should be interpreted as inaccurate with my clinical impression. Related Data Home Medications ?Medication ?Instructions ?Recorded ?Confirmed amitriptyline 25 mg tablet 25 mg PO DAILY 06/24/24 06/24/24 hydroxyzine HCl 25 mg tablet 25 mg PO HS 06/24/24 06/24/24 ondansetron HCl 4 mg tablet 4 mg PO DAILY 06/24/24 06/24/24 Previous Rx's ?Medication ?Instructions ?Recorded diphenhydramine HCl 50 mg capsule 50 mg PO HS #30 caps 06/24/24 (Unisom SleepGels) vitamin-ferrous fumarate 1 tab PO DAILY #30 tabs 06/24/24 28 mg iron-folic acid 800 mcg tablet ( Tablet) promethazine 12.5 mg tablet 12.5 mg PO TID PRN nausea and 06/24/24 vomiting #30 tabs Allergies Allergy/AdvReac Type Severity Reaction Status Date / Time Penicillins Allergy Hives Verified 06/24/24 10:31 [facility] Disclaimer: The information contained in this section may have been updated after the patient was seen, as this information can be updated by other users. Medical History (Updated 07/07/24 @ 16:38 by Bob Mendez MD) History of depression History of anxiety History of ADHD Personal history of kidney stones Surgical History (Updated 06/24/24 @ 10:32 by Carlos Ruth MA) No significant past surgical history Social History Smoking Status: Current every day smoker alcohol intake: never current occupational status: other Travel in the last 8 weeks: None Have you lived/traveled outside [place] in past 30 days?: No Contact w/someone who lives/traveled outside US past 30 days?: No Exposure to someone with infectious disease in past 14 days?: No Do you have a fever (greater than 100.4 F or 38 C)?: No Have you tested positive for COVID-19: No Exposed to someone with COVID-19 in past 14 days?: No Do you have a sore throat?: No Do you have a cough?: No Do you have any weakness?: No Do you have any diarrhea?: No Are you experiencing any unusual bleeding?: No Do you have any muscle aches/pain?: No Do you have any abdominal pain?: No Are you experiencing loss of taste or smell?: No Other Medical History Have you received the Flu Vaccine for this season: No Have you received the Pneumonia Vaccine: No ROS Obtained: Yes All systems reviewed & no additional complaints except as documented Physical Exam General General appearance: alert Head Head exam: atraumatic and normocephalic Eye Eye exam: Present normal appearance, PERRL and EOMI Neck Neck exam: Present normal inspection, full ROM and trachea midline Respiratory Respiratory exam: Absent respiratory distress, wheezes, stridor, accessory muscle use or prolonged expiratory phase Cardiovascular Cardiovascular exam: Present other (Pulses equal symmetric in upper and lower extremities) Abdominal Exam Abdominal exam: Present soft; Absent distention, tenderness or pulsatile mass Extremities Exam Extremities exam: Absent edema Neurological Exam Neurological exam: Present alert, oriented X3 and CN II-XII intact; Absent motor sensory deficit Skin Skin exam: Present warm and dry; Absent diaphoresis or erythema Medical Decision Making Medical Records Medical records reviewed: Yes I reviewed the patient's medical records. Screening: Per USPSTF and CDC recommendations, given the prevalence of disease in our region, it is our hospital?s policy to screen for HIV and viral Hepatitis for all patients aged 18 and over and those with ongoing risk factors. Timmy Inquiry Pt receiving controlled substance: No Timmy was queried for this patient: No Vital Signs: 07/07/24 14:46 07/07/24 16:42 07/07/24 16:43 Temperature 97.7 F 98.3 F 98.2 F Temperature Source Oral Oral Oral Pulse Rate 78 88 Pulse Rate [Right] 94 H Respiratory Rate 18 18 18 Blood Pressure 110/78 140/80 Blood Pressure [Right Arm] 143/83 H Blood Pressure Mean [Right Arm] 103 Blood Pressure Source Automatic Cuff Automatic Cuff Blood Pressure Source [Right Arm] Automatic Cuff Blood Pressure Position Sitting 02 Sat by Pulse Oximetry 99 Oxygen Delivery Method Room Air Room Air Room Air Lab Data Lab Results 07/07/24 15:06: SARS-CoV-2 (PCR) Not detected, Influenza A Untype (PCR) Detected A, Influenza Type B (PCR) Not detected Orders (Tests/Meds): ORDERS Category Date Time Status Rapid PCR Covid and Flu A/B Stat Lab 07/07/24 15:06 Completed Medical Decision Narrative: 33-year-old female currently presenting with chest tightness and viral symptoms. This been going on for a couple of days, worse today. Came in for further evaluation. Patient states that she has been having no other symptoms. Son has influenza A. History obtained with patient. On arrival, very well-appearing, no acute distress. Lungs are clear bilaterally, patient nontachypneic, nontachycardic and very well-appearing clinically. Speaking in full sentences. Viral swab obtained and this was positive for influenza as well. Conversation had with patient, she feels appropriate and comfortable going home with Tylenol, antihistamines, and outpatient follow-up with her [employer]. Because patient at baseline without signs or symptoms of clinical decompensation, deemed appropriate for discharge. Results were relayed to patient who voiced understanding and were agreeable to outpatient management and follow up. I discussed my clinical impression with patient and answered all questions. At this time, the evidence for any other entities in the differential is insufficient to warrant any further testing or ED observation. This was explained as well. Advisory was given that persistent or worsening symptoms require further evaluation. I confirmed the understanding of this discussion. Premix Operator Concentrate disclaimer Much of this encounter note is an electronic show design supervisor spoken language to printed text. Electronic show design supervisor of the spoken language may permit errors. Although I have reviewed the note, some errors may still exist. Critical Care Critical Care Time Critical Care Time: No
[2024-07-07 16:42] VITALS: BP 110/78; PULSE 78; RESP 18; TEMP 36.8
[2024-07-07 16:43] VITALS: BP 140/80; PULSE 88; RESP 18; TEMP 36.8; O2SAT 98
== END 2024-07-07 16:47 | disposition home or self-care (01) ==
PROVIDERS: Emergency Provider Emergency Medicine; PCP Nurse Practitioner
DX: J10.1 Influenza due to other identified influenza virus with other respiratory manifestations (principal); R05.9 Cough, unspecified; R09.81 Nasal congestion; R07.89 Other chest pain
CPT/HCPCS: 87636; 99283

== ENCOUNTER 2024-07-22 10:10 | Outpatient (CLI) | payer MEDICAID, SELFPAY ==
[2024-07-22 10:32] LABS: Basophils % 0.4 % (0.1-2.0); Eosinophils # 0.1 K/mm3 (0.0-0.4); Eosinophils % 0.9 % (0.1-12.0); Hematocrit 33.2 % (37.0-47.0); Hemoglobin 10.9 g/dL (12.2-16.2); Lymphocytes # 1.4 K/mm3 (0.7-4.5); Lymphocytes % 18.1 % (10-50); Mean Corpuscular HGB Conc 32.8 g/dL (31.8-35.4); Mean Corpuscular Hemoglobin 30.9 pg (27.0-31.2); Mean Corpuscular Volume 94.1 fl (81-99); Mean Platelet Volume 11.7 fl (7.4-10.4); Monocytes # 0.4 K/mm3 (0.1-1.0); Monocytes % 4.9 % (1.7-9.3); Neutrophils # 5.9 K/mm3 (1.8-7.8); Neutrophils % 75.2 % (37.0-80.0); Platelet Count 157 K/mm3 (142-424); Red Blood Count 3.53 M/mm3 (4.20-5.40); Red Cell Distribution Width 14.8 % (11.5-17.5); White Blood Count 7.9 K/mm3 (4.8-10.8)
[2024-07-22 12:12] LABS: HIV Combo NEGATIVE (Negative)
[2024-07-22 12:21] LABS: Hepatitis C Ab Qual. W/ RFX NEGATIVE (Negative)
[2024-07-23 05:12] LABS: Hepatitis B Surface Antigen Negative (Negative)
== END 2024-07-22 23:59 | disposition home or self-care (01) ==
LOC: LAB 10:11
PROVIDERS: PCP Nurse Practitioner; Visit Provider Obstetrics & Gynecology
DX: Z34.90 Encounter for supervision of normal pregnancy, unspecified, unspecified trimester (principal)
CPT/HCPCS: 36415; 85025; 86762; 86803; 86850; 86870; 87340; 87389

== ENCOUNTER 2024-08-05 12:31 | Outpatient (CLI) | payer MEDICAID, SELFPAY ==
--- NOTE | 2024-08-05 12:32 | US_ITS ---
PROCEDURE: US OB /MATERNAL DETAIL CLINICAL INDICATION: 20 week anatomy scan COMPARISON: US US OB TRANSVAGINAL from 05/28/2024 FINDINGS: Transabdominal sonographic images of the pelvis were obtained. From her established due date she is 20 weeks 4 days. Single viable intrauterine gestation. Breech position. Placenta: Posteriorplacenta grade 1. There is an average amount of fluid. The cervix appears satisfactory. Closed and measuring 4.09 cm in length. Complete survey performed and was unremarkable on the submitted images as in PACS. No discrete anomalies identified on survey imaging by technologist. Active fetus. Three-vessel cord with satisfactory umbilical cord insertion. 4- chamber heart noted. [place], aortic arch, LVOT, RVOT, three-vessel view appear normal. Survey of brain & ventricles Unremarkable. Cerebellum, thalamus, choroid plexus, cisterna magna appear normal. Face and neck survey unremarkable. Profile, nasion, lips and nose appeared normal. Diaphragm and chest views unremarkable. Abdomen: Both kidneys noted and unremarkable. Stomach and bladder noted and satisfactory. Spine: Survey of the spine satisfactory with no anomalies identified nor imaged. Cervical, thoracic, lower spine appear normal. Both arms and legs noted. Amniotic Fluid: Adequate. MVP 3.18 cm Measurements: Average ultrasound age 20weeks 1day. Estimated due date by ultrasound age 0612/22/2024. Estimated weight 342g BPD = 19weeks 5days HC = 20weeks 1day AC = 20weeks 3days FL = 20weeks 2days Growth Percentile= 29 Heart Rate = 144bpm Cerebellum = 19weeks 6days Humerus = 21weeks 3days HC/AC is 1.16 FL/BPD is 0.73 FL/AC is 0.22 IMPRESSION: 1. Viable fetus in the breech presentation with a posterior placenta grade 1. 2. The fluid is within normal limits with an MVP 3.18 cm. 3. Anatomical scan appears normal. 4. biometry is consistent with the dates. Dictated by: Chandler Valadez MD 08/05/2024 15:08 Chandler Valadez MD in OV 08/05/2024 15:08
== END 2024-08-05 23:59 | disposition home or self-care (01) ==
LOC: RAD 12:32
PROVIDERS: PCP Nurse Practitioner; Visit Provider Obstetrics & Gynecology
DX: Z36.89 Encounter for other specified antenatal screening (principal); Z3A.20 20 weeks gestation of pregnancy
CPT/HCPCS: 76811

== ENCOUNTER 2024-08-13 15:00 | Outpatient (CLI) | payer MEDICAID, SELFPAY | END 2024-08-13 23:59 | disposition home or self-care (01) | LOC: LAB.DROPOF 08-14 13:45 | PROVIDERS: PCP Obstetrics & Gynecology; Visit Provider Obstetrics & Gynecology | DX: R39.9 Unspecified symptoms and signs involving the genitourinary system (principal) | CPT/HCPCS: 87086 ==

== ENCOUNTER 2024-09-20 18:02 | Emergency (ER) | payer MEDICAID, SELFPAY ==
[2024-09-20 18:12] VITALS: BP 158/86; PULSE 105; O2SAT 100
[2024-09-20 18:19] VITALS: BP 132/76; PULSE 109; O2SAT 99
[2024-09-20 18:20] LABS: Microscopic, Urine URINE MICROSCOPIC (MICROSCOPIC)
[2024-09-20 18:21] VITALS: BP 158/86; PULSE 100; RESP 20; TEMP 36.7; O2SAT 98; BMI 26.5
--- NOTE | 2024-09-20 18:21 | HMH.EDGENADL ---
Discharge Plan Disposition Patient Disposition: Home, Self-Care Prescriptions Prescriptions: New potassium chloride [Klor-Con M20] 20 mEq tablet,ER particles/crystals 20 meq PO BID Qty: 10 0RF labetalol 100 mg tablet 100 mg PO BID Qty: 7 0RF clindamycin HCl 150 mg capsule 450 mg PO Q8H 5 Days Qty: 45 0RF No Action quetiapine [Seroquel] 50 mg tablet 50 mg PO DAILY Qty: 90 1RF PNV cmb#95-ferrous fumarate-FA [] 28 mg iron- 800 mcg tablet See Rx Instructions .ROUTE .COMPLEX Qty: 90 12RF Dose Instruction: TAKE 1 TABLET BY MOUTH EVERY DAY Rx Instructions: TAKE 1 TABLET BY MOUTH EVERY DAY Referrals Follow up/Referrals: Julianne Fritz DO [Staff Physician] - See instructions Beverly Shook APRN [Primary Care Provider] - See instructions Activity Restrictions/Add. Instructions Additional Instructions/Restrictions: Today you were evaluated in the emergency department. Your potassium was low, please take the oral potassium that I prescribed. Please monitor your blood pressure closely at home, twice a day. Your urine had trace bacteria so we will treat this, please take the antibiotics as directed. Please follow-up with OB Sunday as we discussed. Return to the ED for any worsening of your condition. Clinical Impressions Clinical Impression: Bacteria in urine, Abscess, Elevated blood pressure reading Protein in urine Qualifiers: Proteinuria type: unspecified Qualified Code(s): R80.9 - Proteinuria, unspecified Qualifiers: Weeks of gestation: unspecified Qualified Code(s): Z34.90 - Encounter for supervision of normal , unspecified, unspecified trimester Instructions Patient Instructions: DI for -- Discomforts and Remedies Print Language Print Language: [place] Discharge ED Provider: Bob Mendez General Adult HPI <Nevin Fernandez APRN - Last Filed: 09/20/24 20:50> General Chief complaint: Skin/Abscess/Foreign Body Stated complaint: Sore in top of head,forehead swollen Time Seen by Provider: 09/20/24 18:05 History of Present Illness HPI narrative: Patient is a 33-year-old female no significant PMH who presents to the ED for complaints of forehead edema and sores on scalp. Patient states these have been there about 3 weeks, she recently noticed her forehead edema. Patient is 27 weeks , G5, P4. Related Data Previous Rx's ?Medication ?Instructions ?Recorded quetiapine 50 mg tablet (Seroquel) 50 mg PO DAILY #90 tabs 09/09/24 vit no.95-ferrous See Rx Instructions .Route 09/19/24 fumarate 28 mg-folic acid 800 mcg .COMPLEX #90 tabs tablet () clindamycin HCl 150 mg capsule 450 mg (3 x 150 mg) PO Q8H 5 days 09/20/24 #45 caps labetalol 100 mg tablet 100 mg PO BID #7 tabs 09/20/24 potassium chloride 20 mEq 20 meq PO BID #10 tabs 09/20/24 tablet,extended release(part/cryst) (Klor-Con M) Allergies Allergy/AdvReac Type Severity Reaction Status Date / Time Penicillins Allergy Intermediate Hives Verified 09/20/24 20:21 [facility] <Nevin Fernandez APRN - Last Filed: 09/20/24 20:50> PFS Disclaimer: The information contained in this section may have been updated after the patient was seen, as this information can be updated by other users. Medical History History of depression History of anxiety History of ADHD Personal history of kidney stones Surgical History No significant past surgical history Social History Smoking Status: Current every day smoker alcohol intake: never current occupational status: other Travel in the last 8 weeks: None Have you lived/traveled outside US in past 30 days?: No Contact w/someone who lives/traveled outside US past 30 days?: No Exposure to someone with infectious disease in past 14 days?: No Do you have a fever (greater than 100.4 F or 38 C)?: No Have you tested positive for COVID-19: No Exposed to someone with COVID-19 in past 14 days?: No Do you have a sore throat?: No Do you have a cough?: No Do you have any weakness?: No Do you have any diarrhea?: No Are you experiencing any unusual bleeding?: No Do you have any muscle aches/pain?: No Do you have any abdominal pain?: No Are you experiencing loss of taste or smell?: No Other Medical History Have you received the Flu Vaccine for this season: No Have you received the Pneumonia Vaccine: No <Nevin Fernandez APRN - Last Filed: 09/20/24 20:50> ROS Obtained: Yes Systems reviewed as appropriate & no additional complaints except as documented Physical Exam <Nevin Fernandez APRN - Last Filed: 09/20/24 20:50> General General appearance: alert and in no apparent distress Head Head exam: atraumatic, normocephalic and other (mild forehead edema, multiple scabs and scalp, patient has a small abscess in scalp that is open and draining ) Eye Eye exam: Present normal appearance and PERRL ENT ENT exam: Present normal exam Neck Neck exam: Present normal inspection Chest Chest inspection: Present normal inspection and symmetric chest wall rise; Absent tenderness Respiratory Respiratory exam: Present normal lung sounds bilaterally Cardiovascular Cardiovascular exam: Present regular rate Abdominal Exam Abdominal exam: Present soft and normal bowel sounds; Absent tenderness Extremities Exam Extremities exam: Present normal inspection and full ROM Back Exam Back exam: Present normal inspection and full ROM Neurological Exam Neurological exam: Present alert and oriented X3 Psychiatric Psychiatric exam: Present normal affect and normal mood Skin Skin exam: Present warm and dry Medical Decision Making <Nevin Fernandez APRN - Last Filed: 09/20/24 20:50> Medical Records Screening: Per USPSTF and CDC recommendations, given the prevalence of disease in our region, it is our hospital?s policy to screen for HIV and viral Hepatitis for all patients aged 18 and over and those with ongoing risk factors. Timmy Inquiry Pt receiving controlled substance: No Timmy was queried for this patient: No Vital Signs: 09/20/24 18:12 09/20/24 18:19 09/20/24 18:21 Temperature 98.1 F Temperature Source Oral Pulse Rate 105 H 109 H Pulse Rate [Right] 100 H Respiratory Rate 20 Blood Pressure 158/86 H 132/76 Blood Pressure [Right Arm] 158/86 H Blood Pressure Mean Blood Pressure Mean [Right Arm] 110 Blood Pressure Source 02 Sat by Pulse Oximetry 100 99 98 Oxygen Delivery Method Room Air 09/20/24 19:23 09/20/24 20:25 09/20/24 20:59 Temperature 98.2 F Temperature Source Oral Pulse Rate 97 H 100 H 88 Pulse Rate [Right] Respiratory Rate 18 17 18 Blood Pressure 139/89 102/62 L 119/80 Blood Pressure [Right Arm] Blood Pressure Mean 77 Blood Pressure Mean [Right Arm] Blood Pressure Source Automatic Cuff 02 Sat by Pulse Oximetry 99 100 Oxygen Delivery Method Room Air Room Air Room Air Lab Data Lab Results 09/20/24 18:15: Urine Color Yellow, Urine Appearance Slightly cloudy, Urine pH 6.0, Ur Specific [place] > 1.030 H, Urine Protein 1+ A, Urine Glucose (UA) Negative, Urine Ketones Negative, Urine Blood 4+ A, Urine Nitrate Negative, Urine Bilirubin Negative, Urine Urobilinogen 0.2, Ur Leukocyte Esterase Negative, Urine RBC 10-20, Urine WBC 3-5, Ur Squamous Epith Cells 3-5, Urine Bacteria Trace, Urine Creatinine 185, Urine Total Protein 17.0 H, Urine Opiates Screen Negative, Urine Methadone Screen Negative, Ur Barbituates Screen Negative, Ur Phencyclidine Scrn Negative, Ur Amphetamines Screen Negative, U Benzodiazepines Scrn Negative, Urine Cocaine Screen Negative, U Marijuana (THC) Screen Positive H 09/20/24 18:27: WBC 11.8 H, RBC 3.39 L, Hgb 9.7 L, Hct 30.3 L, MCV 89.4, MCH 28.6, MCHC 32.0, RDW 14.5, Plt Count 175, MPV 12.0 H, Neut % (Auto) 79.2, Lymph % (Auto) 14.8, [place] % (Auto) 4.1, Eos % (Auto) 0.8, Baso % (Auto) 0.3, Neut # (Auto) 9.4 H, Lymph # (Auto) 1.8, [place] # (Auto) 0.5, Eos # (Auto) 0.1, Baso # (Auto) 0.0, Sodium 133 L, Potassium 2.7 L*, Chloride 105, Carbon Dioxide 21 L, Anion Gap 9.7, BUN 5 L, Creatinine 0.50 L, Estimated Creat Clear 173, Estimated GFR 143, Est GFR ( Amer) 173, Glucose 106 H, Calcium 8.8, Total Bilirubin 0.4, AST 26, ALT 15, Alkaline Phosphatase 59, Total Protein 6.8, Albumin 3.9, Globulin 2.9, Albumin/Globulin Ratio 1.3 09/20/24 18:27 09/20/24 18:27 Orders (Tests/Meds): ED MEDICATIONS Discontinued Medications Generic Name Dose Route Start Last Admin Trade Name Sergey PRN Reason Stop Dose Admin Acetaminophen 1,000 mg 09/20/24 19:29 09/20/24 19:50 Acetaminophen 500mg Tab PO 09/20/24 19:30 1,000 mg ONCE ONE Administration Clindamycin Phosphate 600 mg in 50 mls @ 100 mls/hr 09/20/24 19:21 09/20/24 19:51 Clindamycin 600mg/50ml D5w Premix IV 09/20/24 19:50 100 mls/hr ONCE ONE Administration Labetalol HCl 200 mg 09/20/24 19:29 09/20/24 19:51 Labetalol 100mg Tablet PO 09/20/24 19:30 200 mg ONCE ONE Administration Potassium Chloride 40 meq 09/20/24 20:30 09/20/24 20:44 Potassium Chloride 20meq Tab PO 09/20/24 20:31 40 meq ONCE ONE Administration ORDERS Category Date Time Status CBC w/Auto Diff [Complete Blood Count Auto Diff] Stat Lab 09/20/24 18:27 Completed CMP [Comprehensive Metabolic Panel] Stat Lab 09/20/24 18:27 Completed Creatinine,Urine Random Stat Lab 09/20/24 18:15 Completed Total Protein,Urine Random Stat Lab 09/20/24 18:15 Completed UDS [Drug Screen,Urine] Stat Lab 09/20/24 18:15 Completed Urinalysis and Microscopic Stat Lab 09/20/24 18:15 Completed Medical Decision Narrative: In summary, patient is a 33-year-old female no significant PMHx who presents to the ED for complaints of forehead edema and sores on scalp. Patient states these have been there about 3 weeks, she recently noticed her forehead edema. Patient is 27 weeks , G5, P4. She states she has not had any previous complications. She states that she does have anxiety and feels anxious at baseline. Denies any additional complaints at this time. Denies any lower extremity edema. Upon initial exam, patient is alert, oriented and cooperative. Patient is hemodynamically stable. Physical exam remarkable for mild forehead edema, multiple scabs and scalp area. Denies fever, chills, body aches, current headache, visual disturbances, posterior neck pain, chest pain, shortness of breath, abdominal pain, nausea, vomiting, dysuria, diarrhea. Differential diagnosis includes preeclampsia, anxiety, dry skin, among others, abscess. Initial workup will be conducted with hematologic labs and urinalysis. Initial workup reviewed by me. CBC WBC 11.8, stable H&H. Normal platelets. CMP remarkable for sodium 133, potassium 2.7, BUN 5, creatinine 0.50, AST 26, ALT 15. Urinalysis remarkable for specific gravity > 1.030, urine protein 1+, urine blood 4+, urine creatinine 185, urine total protein 17. I discussed case with OB on-call, who advised to have patient follow-up in the clinic on Sunday. Advised to give labetalol for blood pressure. Patient given labetalol 200 mg, reassessment of blood pressure 102/64. Heart rate 88. Patient remained stable. Discussed with patient that due to the small abscess in her scalp we will place her on clindamycin. Discussed that she can take labetalol until evaluated by OB next week, patient will be seen in the clinic on Sunday. Discussed taking her blood pressure prior to taking the blood pressure medication. Advised her to the due to hypokalemia she will need to take a few doses of potassium and have this rechecked. We discussed for her to monitor her blood pressure and to return to the ED for any worsening of condition. <Bob Mendez MD - Last Filed: 09/20/24 21:34> Vital Signs: 09/20/24 18:12 09/20/24 18:19 09/20/24 18:21 Temperature 98.1 F Temperature Source Oral Pulse Rate 105 H 109 H Pulse Rate [Right] 100 H Respiratory Rate 20 Blood Pressure 158/86 H 132/76 Blood Pressure [Right Arm] 158/86 H Blood Pressure Mean Blood Pressure Mean [Right Arm] 110 Blood Pressure Source 02 Sat by Pulse Oximetry 100 99 98 Oxygen Delivery Method Room Air 09/20/24 19:23 09/20/24 20:25 09/20/24 20:59 Temperature 98.2 F Temperature Source Oral Pulse Rate 97 H 100 H 88 Pulse Rate [Right] Respiratory Rate 18 17 18 Blood Pressure 139/89 102/62 L 119/80 Blood Pressure [Right Arm] Blood Pressure Mean 77 Blood Pressure Mean [Right Arm] Blood Pressure Source Automatic Cuff 02 Sat by Pulse Oximetry 99 100 Oxygen Delivery Method Room Air Room Air Room Air Lab Data Lab Results 09/20/24 18:15: Urine Color Yellow, Urine Appearance Slightly cloudy, Urine pH 6.0, Ur Specific [place] > 1.030 H, Urine Protein 1+ A, Urine Glucose (UA) Negative, Urine Ketones Negative, Urine Blood 4+ A, Urine Nitrate Negative, Urine Bilirubin Negative, Urine Urobilinogen 0.2, Ur Leukocyte Esterase Negative, Urine RBC 10-20, Urine WBC 3-5, Ur Squamous Epith Cells 3-5, Urine Bacteria Trace, Urine Creatinine 185, Urine Total Protein 17.0 H, Urine Opiates Screen Negative, Urine Methadone Screen Negative, Ur Barbituates Screen Negative, Ur Phencyclidine Scrn Negative, Ur Amphetamines Screen Negative, U Benzodiazepines Scrn Negative, Urine Cocaine Screen Negative, U Marijuana (THC) Screen Positive H 09/20/24 18:27: WBC 11.8 H, RBC 3.39 L, Hgb 9.7 L, Hct 30.3 L, MCV 89.4, MCH 28.6, MCHC 32.0, RDW 14.5, Plt Count 175, MPV 12.0 H, Neut % (Auto) 79.2, Lymph % (Auto) 14.8, [place] % (Auto) 4.1, Eos % (Auto) 0.8, Baso % (Auto) 0.3, Neut # (Auto) 9.4 H, Lymph # (Auto) 1.8, [place] # (Auto) 0.5, Eos # (Auto) 0.1, Baso # (Auto) 0.0, Sodium 133 L, Potassium 2.7 L*, Chloride 105, Carbon Dioxide 21 L, Anion Gap 9.7, BUN 5 L, Creatinine 0.50 L, Estimated Creat Clear 173, Estimated GFR 143, Est GFR ( Amer) 173, Glucose 106 H, Calcium 8.8, Total Bilirubin 0.4, AST 26, ALT 15, Alkaline Phosphatase 59, Total Protein 6.8, Albumin 3.9, Globulin 2.9, Albumin/Globulin Ratio 1.3 Orders (Tests/Meds): ED MEDICATIONS Discontinued Medications Generic Name Dose Route Start Last Admin Trade Name Freq PRN Reason Stop Dose Admin Acetaminophen 1,000 mg 09/20/24 19:29 09/20/24 19:50 Acetaminophen 500mg Tab PO 09/20/24 19:30 1,000 mg ONCE ONE Administration Clindamycin Phosphate 600 mg in 50 mls @ 100 mls/hr 09/20/24 19:21 09/20/24 19:51 Clindamycin 600mg/50ml D5w Premix IV 09/20/24 19:50 100 mls/hr ONCE ONE Administration Labetalol HCl 200 mg 09/20/24 19:29 09/20/24 19:51 Labetalol 100mg Tablet PO 09/20/24 19:30 200 mg ONCE ONE Administration Potassium Chloride 40 meq 09/20/24 20:30 09/20/24 20:44 Potassium Chloride 20meq Tab PO 09/20/24 20:31 40 meq ONCE ONE Administration ORDERS Category Date Time Status CBC w/Auto Diff [Complete Blood Count Auto Diff] Stat Lab 09/20/24 18:27 Completed CMP [Comprehensive Metabolic Panel] Stat Lab 09/20/24 18:27 Completed Creatinine,Urine Random Stat Lab 09/20/24 18:15 Completed Total Protein,Urine Random Stat Lab 09/20/24 18:15 Completed UDS [Drug Screen,Urine] Stat Lab 09/20/24 18:15 Completed Urinalysis and Microscopic Stat Lab 09/20/24 18:15 Completed Medical Decision Narrative: In summary, patient is a 33-year-old female no significant PMHx who presents to the ED for complaints of forehead edema and sores on scalp. Patient states these have been there about 3 weeks, she recently noticed her forehead edema. Patient is 27 weeks , G5, P4. She states she has not had any previous complications. She states that she does have anxiety and feels anxious at baseline. Denies any additional complaints at this time. Denies any lower extremity edema. Upon initial exam, patient is alert, oriented and cooperative. Patient is hemodynamically stable. Physical exam remarkable for mild forehead edema, multiple scabs and scalp area. Denies fever, chills, body aches, current headache, visual disturbances, posterior neck pain, chest pain, shortness of breath, abdominal pain, nausea, vomiting, dysuria, diarrhea. Differential diagnosis includes preeclampsia, anxiety, dry skin, among others, abscess. Initial workup will be conducted with hematologic labs and urinalysis. Initial workup reviewed by me. CBC WBC 11.8, stable H&H. Normal platelets. CMP remarkable for sodium 133, potassium 2.7, BUN 5, creatinine 0.50, AST 26, ALT 15. Urinalysis remarkable for specific gravity > 1.030, urine protein 1+, urine blood 4+, urine creatinine 185, urine total protein 17. I discussed case with OB on-call, who advised to have patient follow-up in the clinic on Sunday. Advised to give labetalol for blood pressure. Patient given labetalol 200 mg, reassessment of blood pressure 102/64. Heart rate 88. Patient remained stable. Discussed with patient that due to the small abscess in her scalp we will place her on clindamycin. Discussed that she can take labetalol until evaluated by OB next week, patient will be seen in the clinic on Sunday. Discussed taking her blood pressure prior to taking the blood pressure medication. Advised her to the due to hypokalemia she will need to take a few doses of potassium and have this rechecked. We discussed for her to monitor her blood pressure and to return to the ED for any worsening of condition. I was consulted by the BERNARDO, and we discussed the complexity of the problems being addressed. I approved the treatment and management plan for this patient's care in the Emergency Department, thus performing a substantive portion of the medical decision making. Bob Mendez MD Procedures <Bob Mendez MD - Last Filed: 09/20/24 21:34> Limited Ultrasound Indication:: Limited OB ultrasound Indication: Positive , abnormal labs Identified structures: -Uterus -Left adnexa -Right adnexa -Pouch of [place] Findings: Uterus: Definitive IUP heart rate within normal limits Right adnexa: -Normal Left adnexa: -Normal [place]: -free fluid absent Impression: -IUP: Present with fhr within normal limits -Ectopic : Absent -Free fluid: Absent Images were saved to permanent archive The study was technically adequate CPT Transabdominal: 99433-53 This study was performed by me, and I personally interpreted all images/videos. Based on my clinical judgement, these images were adequate and did not necessitate further imaging Critical Care <Nevin Fernandez APRN - Last Filed: 09/20/24 20:50> Critical Care Time Critical Care Time: No
[2024-09-20 18:25] LABS: Appearance,Urine Slightly Cloudy (Clear); Bilirubin,Urine Negative (Negative); Blood, Urine 4+ (Negative); Color,Urine Yellow (Yellow); Glucose,Urine (UA) Negative (Negative); Ketones,Urine Negative (Negative); Leukocyte Esterase,Urine Negative (Negative); Nitrate,Urine Negative (Negative); Protein,Urine 1+ (Negative); Specific Gravity, Urine > 1.030 (1.005-1.030); Urobilinogen,Urine 0.2 EU/dl (0.2)
[2024-09-20 18:37] LABS: Basophils % 0.3 % (0.1-2.0); Eosinophils # 0.1 K/mm3 (0.0-0.4); Eosinophils % 0.8 % (0.1-12.0); Hematocrit 30.3 % (37.0-47.0); Hemoglobin 9.7 g/dL (12.2-16.2); Lymphocytes # 1.8 K/mm3 (0.7-4.5); Lymphocytes % 14.8 % (10-50); Mean Corpuscular Hemoglobin 28.6 pg (27.0-31.2); Mean Corpuscular Volume 89.4 fl (81-99); Monocytes # 0.5 K/mm3 (0.1-1.0); Monocytes % 4.1 % (1.7-9.3); Neutrophils # 9.4 K/mm3 (1.8-7.8); Neutrophils % 79.2 % (37.0-80.0); Platelet Count 175 K/mm3 (142-424); Red Blood Count 3.39 M/mm3 (4.20-5.40); Red Cell Distribution Width 14.5 % (11.5-17.5); White Blood Count 11.8 K/mm3 (4.8-10.8)
[2024-09-20 18:52] LABS: Bacteria,Urine Trace /lpf
[2024-09-20 19:12] LABS: Alanine Aminotransferase 15 U/L (12-78); Albumin Level 3.9 g/dl (3.5-5.0); Albumin/Globulin Ratio 1.3 (1.1-1.8); Alkaline Phosphatase 59 U/L (38-126); Anion Gap 9.7 mEq/L (5-15); Aspartate Amino Transferase 26 U/L (14-36); Bilirubin,Total 0.4 mg/dl (0.2-1.3); Blood Urea Nitrogen 5 mg/dl (7-17); Calcium 8.8 mg/dl (8.4-10.2); Carbon Dioxide 21 mmol/L (22.0-30.0); Chloride 105 mmol/L (98-107); Creatinine Clearance Estimated 173 mL/min (50-200); Estimated Glomerular Filt Rate 143 ml/min (>60); GFR (African American) 173 ML/MIN (>60); Globulin 2.9 g/dL (1.3-3.2); Glucose 106 mg/dl (74-100); Sodium 133 mmol/L (136-145); Total Protein,Serum 6.8 g/dl (6.3-8.2)
[2024-09-20 19:13] LABS: Potassium 2.7 mmoL/L (3.5-5.1)
--- NOTE | 2024-09-20 19:13 | PC.NURSE ---
Urmila Fernandez APRN notified fo critical potassium
[2024-09-20 19:23] VITALS: BP 139/89; PULSE 97; RESP 18; O2SAT 99
--- NOTE | 2024-09-20 19:28 | PC.NURSE ---
Urmila Fernandez APRN s/w Dr Julianne Fritz
[2024-09-20 19:31] LABS: Amphetamine/Metha Screen,Urine Negative ng/ml (<1000); Barbiturates Screen,Urine Negative ng/ml (<200)
[2024-09-20 19:32] LABS: Benzodiazepines Screen,Urine Negative ng/ml (<200)
[2024-09-20 19:33] LABS: Cannabinoid Screen,Urine Positive ng/ml (<50); Cocaine Screen,Urine Negative ng/ml (<300)
[2024-09-20 19:34] LABS: Methadone Screen,Urine Negative ng/ml (<300); Opiate Screen,Urine Negative ng/ml (<300)
[2024-09-20 19:35] LABS: Phencyclidine Screen,Urine Negative ng/ml (<25)
[2024-09-20 19:44] LABS: Creatinine,Urine Random 185 mg/dL (Not Estab.)
[2024-09-20] MEDS: ACETAMINOPHEN 500MG TAB 1000 MG PO (19:50)
[2024-09-20] MEDS: CLINDAMYCIN PHOSPHATE/D5W 600 MG/50 ML PIGGYBACK 100 MG IV (19:51)
[2024-09-20] MEDS: LABETALOL 100MG TABLET 200 MG PO (19:51)
[2024-09-20 20:25] VITALS: BP 102/62; PULSE 100; RESP 17; O2SAT 100
[2024-09-20] MEDS: POTASSIUM CHLORIDE 20MEQ TAB 40 MEQ PO (20:44)
[2024-09-20 20:59] VITALS: BP 119/80; PULSE 88; RESP 18; TEMP 36.8; O2SAT 98
== END 2024-09-20 21:02 | disposition home or self-care (01) ==
PROVIDERS: Nurse Practitioner; Emergency Provider Emergency Medicine; PCP Nurse Practitioner
DX: Z34.90 Encounter for supervision of normal pregnancy, unspecified, unspecified trimester (principal); R82.71 Bacteriuria; L02.91 Cutaneous abscess, unspecified; R80.9 Proteinuria, unspecified; R03.0 Elevated blood-pressure reading, without diagnosis of hypertension; L98.9 Disorder of the skin and subcutaneous tissue, unspecified; F17.210 Nicotine dependence, cigarettes, uncomplicated; Z3A.27 27 weeks gestation of pregnancy
CPT/HCPCS: 80053; 80307; 81001; 82570; 84156; 85025; 96365; 99283; J0736

== ENCOUNTER 2024-10-01 09:59 | Outpatient (CLI) | payer MEDICAID, SELFPAY ==
--- NOTE | 2024-10-01 09:59 | US_ITS ---
PROCEDURE: US OB FOLLOW UP CLINICAL INDICATION: LGA Hypertension COMPARISON: US US OB TRANSVAGINAL from 05/28/2024 US US OB /MATERNAL DETAIL from 08/05/2024 FINDINGS: Transabdominal sonographic images of the pelvis were obtained. The following parameters are obtained: From her established due date she is 28weeks 5days Viable fetus in the cephalic presentation with a posterior placenta grade 1. The cervix measures 3.21 cm. Average ultrasound age 28 weeks 2 days. Estimated weight 1223 grams, 2 lb 11 oz heart rate: 153bpm bpm. BPD: 27weeks 3days, 7 percentile HC: 28weeks 1day, 7 percentile AC: 28weeks 4days, 35 percentile FL: 28weeks 5days, 34 percentile HC/AC: 1.07 FL/BPD: 0.8 FL/AC: 0.22 Growth percentile: 27 Amniotic fluid index: 8.33cm, MVP 3.26 cm. No obvious anomalies evident. profile seen, stomach, bladder, kidneys, three-vessel cord, four chamber heart appear normal. There is mild right renal pelvis dilation measuring 4.4 mm. IMPRESSION: 1. Viable fetus in the cephalic presentation with a posterior placenta grade 1. 2. The fluid is within normal limits with an amniotic fluid index 8.33 cm, MVP 3.26 cm. 3. Fetus is active. 4. There has been good interval growth with the fetus currently 27th percentile. 5. There is mild right renal pelvis dilation measuring 4.3 mm. 6. The rest of limited anatomical scan appears normal. Dictated by: Chandler Valadez MD 10/01/2024 11:37 Chandler Valadez MD in [place] 10/01/2024 11:37
[2024-10-01 11:58] LABS: Basophils % 0.1 % (0.1-2.0); Eosinophils # 0.1 K/mm3 (0.0-0.4); Eosinophils % 0.6 % (0.1-12.0); Hematocrit 29.9 % (37.0-47.0); Hemoglobin 9.5 g/dL (12.2-16.2); Lymphocytes # 1.6 K/mm3 (0.7-4.5); Lymphocytes % 17.5 % (10-50); Mean Corpuscular HGB Conc 31.8 g/dL (31.8-35.4); Mean Corpuscular Volume 91.2 fl (81-99); Mean Platelet Volume 12.1 fl (7.4-10.4); Monocytes # 0.6 K/mm3 (0.1-1.0); Monocytes % 5.9 % (1.7-9.3); Neutrophils % 74.9 % (37.0-80.0); Platelet Count 139 K/mm3 (142-424); Red Blood Count 3.28 M/mm3 (4.20-5.40); White Blood Count 9.4 K/mm3 (4.8-10.8)
[2024-10-01 12:18] LABS: Glucose 1 Hour 96 mg/dL (74-100)
[2024-10-01] MEDS: RHO(D) IMMUNE GLOBULIN 1,500 UNIT (300MCG) SYRINGE 300 MCG IM (12:42)
[2024-10-01 12:46] VITALS: BP 112/73; PULSE 84; RESP 18; TEMP 36.8; O2SAT 99
[2024-10-01 16:15] LABS: Vitamin B12 194 pg/mL (239-931)
[2024-10-01 19:10] LABS: Ferritin 5.14 ng/ml (6.24-137)
[2024-10-02 11:03] LABS: RPR W/RFX Titers Nonreactive (Nonreactive)
== END 2024-10-01 12:46 | disposition home or self-care (01) ==
LOC: RAD 09:59 → INF 13:18
PROVIDERS: PCP Nurse Practitioner; Visit Provider Obstetrics & Gynecology
DX: O36.60X0 Maternal care for excessive fetal growth, unspecified trimester, not applicable or unspecified (principal); O26.899 Other specified pregnancy related conditions, unspecified trimester; Z67.91 Unspecified blood type, Rh negative; Z13.0 Encounter for screening for diseases of the blood and blood-forming organs and certain disorders involving the immune mechanism
CPT/HCPCS: 36415; 76816; 82607; 82728; 82746; 82947; 85025; 86592; 96372; J2790

== ENCOUNTER 2024-10-06 11:47 | Outpatient (CLI) | payer MEDICAID, SELFPAY ==
[2024-10-06] MEDS: SODIUM CHLORIDE 0.9% 50ML BAG 50 ML IV (12:02)
[2024-10-06] MEDS: IRON SUCROSE COMPLEX 200 MG in 0.9 % SODIUM CHLORIDE 100 ML 220 MG IV (12:02)
[2024-10-06] MEDS: SODIUM CHLORIDE 0.9% 10ML FLUSH SYRINGE 10 ML IV (12:03)
[2024-10-06 12:08] VITALS: BP 137/76; PULSE 76; RESP 18; TEMP 36.8; O2SAT 100
[2024-10-06 12:45] VITALS: BP 133/72; PULSE 72; RESP 18; O2SAT 100
== END 2024-10-06 12:45 | disposition home or self-care (01) ==
LOC: INF 11:48
PROVIDERS: PCP Nurse Practitioner; Visit Provider Nurse Practitioner Family
DX: D50.9 Iron deficiency anemia, unspecified (principal)
CPT/HCPCS: 96365; J1756

== ENCOUNTER 2024-10-20 11:41 | Outpatient (CLI) | payer MEDICAID, SELFPAY ==
[2024-10-20 12:08] VITALS: BP 139/75; PULSE 101; RESP 16; TEMP 36.7; O2SAT 99
[2024-10-20] MEDS: SODIUM CHLORIDE 0.9% 10ML FLUSH SYRINGE 10 ML IV (12:08)
[2024-10-20] MEDS: IRON SUCROSE COMPLEX 200 MG in 0.9 % SODIUM CHLORIDE 100 ML 220 MG IV (12:08)
[2024-10-20] MEDS: SODIUM CHLORIDE 0.9% 50ML BAG 50 ML IV (12:08)
[2024-10-20 12:45] VITALS: BP 142/84; PULSE 92; RESP 16; TEMP 36.7; O2SAT 100
== END 2024-10-20 12:45 | disposition home or self-care (01) ==
LOC: INF 11:41
PROVIDERS: PCP Nurse Practitioner; Visit Provider Obstetrics & Gynecology
DX: D50.9 Iron deficiency anemia, unspecified (principal)
CPT/HCPCS: 96365; J1756

== ENCOUNTER 2024-11-10 09:30 | Outpatient (CLI) | payer MEDICAID, SELFPAY ==
[2024-11-10 09:42] VITALS: BP 149/89; PULSE 120; RESP 18; TEMP 36.8; O2SAT 97; BMI 29.9
[2024-11-10 09:51] LABS: Microscopic, Urine URINE MICROSCOPIC (MICROSCOPIC)
[2024-11-10 09:52] LABS: Appearance,Urine CLEAR (Clear); Bilirubin,Urine Negative (Negative); Blood, Urine 2+ (Negative); Color,Urine YELLOW (Yellow); Glucose,Urine (UA) Negative (Negative); Ketones,Urine Negative (Negative); Leukocyte Esterase,Urine Negative (Negative); Nitrate,Urine Negative (Negative); PH,Urine 6.5 (5.0-8.5); Protein,Urine Negative (Negative); Specific Gravity, Urine 1.025 (1.005-1.030); Urobilinogen,Urine 0.2 EU/dl (0.2)
[2024-11-10 10:11] LABS: WBC,Urine Occasional #/hpf (0-3)
[2024-11-10 10:12] LABS: Bacteria,Urine 4+ /lpf
[2024-11-10] MEDS: LABETALOL 100MG TABLET 100 MG PO (10:45)
== END 2024-11-10 10:55 | disposition home or self-care (01) ==
LOC: OBOUT 09:32 → OB 09:38
PROVIDERS: PCP Nurse Practitioner; Visit Provider Nurse Practitioner Obstetrics & Gynecology
DX: O99.891 Other specified diseases and conditions complicating pregnancy (principal); R06.02 Shortness of breath; Z3A.34 34 weeks gestation of pregnancy
CPT/HCPCS: 81001; 87086; G0463

== ENCOUNTER 2024-11-11 15:09 | Outpatient (CLI) | payer MEDICAID, SELFPAY ==
[2024-11-11 15:20] VITALS: BMI 32.9
[2024-11-11 15:26] LABS: Microscopic, Urine URINE MICROSCOPIC (MICROSCOPIC)
[2024-11-11 15:39] VITALS: BP 133/76; PULSE 105; RESP 16; TEMP 37.1; O2SAT 98; BMI 32.9
[2024-11-11 15:39] LABS: Appearance,Urine CLEAR (Clear); Bilirubin,Urine Negative (Negative); Blood, Urine 1+ (Negative); Color,Urine YELLOW (Yellow); Glucose,Urine (UA) Negative (Negative); Ketones,Urine Negative (Negative); Leukocyte Esterase,Urine Negative (Negative); Nitrate,Urine Negative (Negative); Protein,Urine Negative (Negative); Specific Gravity, Urine 1.025 (1.005-1.030); Urobilinogen,Urine 0.2 EU/dl (0.2)
[2024-11-11 16:05] LABS: Creatinine,Urine Random 159 mg/dL (Not Estab.)
[2024-11-11 16:11] LABS: Basophils % 0.2 % (0.1-2.0); Eosinophils % 0.4 % (0.1-12.0); Hematocrit 32.1 % (37.0-47.0); Hemoglobin 10.3 g/dL (12.2-16.2); Immature Granulocytes # 0.09 10^3uL; Immature Granulocytes % 0.9 %; Lymphocytes # 1.4 K/mm3 (0.7-4.5); Lymphocytes % 14.2 % (10-50); Mean Corpuscular HGB Conc 32.1 g/dL (31.8-35.4); Mean Corpuscular Hemoglobin 30.9 pg (27.0-31.2); Mean Corpuscular Volume 96.4 fl (81-99); Mean Platelet Volume 11.8 fl (7.4-10.4); Monocytes # 0.5 K/mm3 (0.1-1.0); Monocytes % 4.8 % (1.7-9.3); Neutrophils # 7.9 K/mm3 (1.8-7.8); Neutrophils % 79.5 % (37.0-80.0); Nucleated Red Blood Cells # 0 10^3/uL; Nucleated Red Blood Cells % 0 %; Platelet Count 144 K/mm3 (142-424); Red Blood Count 3.33 M/mm3 (4.20-5.40); Red Cell Distribution Width 19.9 % (11.5-17.5); Red Cell Distribution Width-SD 69.3 fL
[2024-11-11 16:18] LABS: Chloride 111 mmol/L (98-107); Sodium 134 mmol/L (136-145)
[2024-11-11 16:19] LABS: Potassium 3.5 mmoL/L (3.5-5.1)
[2024-11-11 16:21] LABS: Alanine Aminotransferase 13 U/L (12-78); Anion Gap 5.5 mEq/L (5-15); Aspartate Amino Transferase 21 U/L (14-36); Blood Urea Nitrogen 6 mg/dl (7-17); Carbon Dioxide 21 mmol/L (22.0-30.0); Creatinine Clearance Estimated 172 mL/min (50-200); Estimated Glomerular Filt Rate 115 ml/min (>60); GFR (African American) 139 ML/MIN (>60)
[2024-11-11 16:22] LABS: Albumin/Globulin Ratio 1.2 (1.1-1.8); Alkaline Phosphatase 59 U/L (38-126); Bilirubin,Total 0.2 mg/dl (0.2-1.3); Calcium 8.4 mg/dl (8.4-10.2); Globulin 2.6 g/dL (1.3-3.2); Glucose 110 mg/dl (74-100); Total Protein,Serum 5.6 g/dl (6.3-8.2)
[2024-11-11 16:50] LABS: Bacteria,Urine 3+ /lpf; Mucus,Urine 4+ /lpf; Squamous Epithelial Cell,Urine 20-50 #/hpf (0-5)
[2024-11-11 16:51] LABS: RBC,Urine 20-50 #/hpf (0-3)
[2024-11-11 18:28] LABS: Uric Acid 4.6 mg/dl (2.5-6.2)
== END 2024-11-11 16:27 | disposition home or self-care (01) ==
LOC: OBOUT 15:11 → OB 15:12
PROVIDERS: PCP Nurse Practitioner; Visit Provider Obstetrics & Gynecology
DX: O13.3 Gestational [pregnancy-induced] hypertension without significant proteinuria, third trimester (principal); Z3A.34 34 weeks gestation of pregnancy
CPT/HCPCS: 36415; 80053; 81001; 82570; 84156; 84550; 85025; 87086; G0463

== ENCOUNTER 2024-11-14 15:47 | Outpatient (CLI) | payer MEDICAID, SELFPAY ==
[2024-11-14 17:25] LABS: Total Volume,Urine 2300 mL (600-1600)
[2024-11-14 17:26] LABS: Total Protein 24 Hour,Urine 368 mg/24 hr (40-90)
== END 2024-11-14 23:59 | disposition home or self-care (01) ==
LOC: LAB.DROPOF 15:49
PROVIDERS: PCP Nurse Practitioner; Visit Provider Obstetrics & Gynecology
DX: O13.3 Gestational [pregnancy-induced] hypertension without significant proteinuria, third trimester (principal); Z3A.34 34 weeks gestation of pregnancy
CPT/HCPCS: 84155

== ENCOUNTER 2024-11-14 17:28 | Outpatient (CLI) | payer MEDICAID, SELFPAY ==
[2024-11-14] VITALS (7 sets, daily range): BP systolic 122–143; BP diastolic 71–92; PULSE 107; RESP 16; TEMP 36.6; O2SAT 99; BMI 32.9
[2024-11-14 18:44] LABS: Basophils % 0.3 % (0.1-2.0); Chloride 107 mmol/L (98-107); Eosinophils # 0.1 Kmm3 (0.0-0.4); Eosinophils % 0.5 % (0.1-12.0); Hematocrit 34.2 % (37.0-47.0); Hemoglobin 11.2 g/dL (12.2-16.2); Immature Granulocytes # 0.07 10^3uL; Immature Granulocytes % 0.7 %; Lymphocytes # 1.7 K/mm3 (0.7-4.5); Lymphocytes % 16.5 % (10-50); Mean Corpuscular HGB Conc 32.7 g/dL (31.8-35.4); Mean Corpuscular Volume 94.7 fl (81-99); Mean Platelet Volume 12.1 fl (7.4-10.4); Monocytes # 0.5 K/mm3 (0.1-1.0); Monocytes % 5.4 % (1.7-9.3); Neutrophils # 7.7 K/mm3 (1.8-7.8); Neutrophils % 76.6 % (37.0-80.0); Nucleated Red Blood Cells # 0 10^3/uL; Nucleated Red Blood Cells % 0 %; Platelet Count 154 K/mm3 (142-424); Red Blood Count 3.61 M/mm3 (4.20-5.40); Red Cell Distribution Width 19.1 % (11.5-17.5); Red Cell Distribution Width-SD 65.4 fL; White Blood Count 10.1 K/mm3 (4.8-10.8)
[2024-11-14 18:45] LABS: Albumin Level 3.3 g/dl (3.5-5.0); Potassium 3.3 mmoL/L (3.5-5.1); Sodium 131 mmol/L (136-145)
[2024-11-14 18:47] LABS: Blood Urea Nitrogen 5 mg/dl (7-17); Creatinine Clearance Estimated 258 mL/min (50-200); Estimated Glomerular Filt Rate 184 ml/min (>60); GFR (African American) 222 ML/MIN (>60)
[2024-11-14 18:48] LABS: Alanine Aminotransferase 13 U/L (12-78); Albumin/Globulin Ratio 1.2 (1.1-1.8); Alkaline Phosphatase 69 U/L (38-126); Anion Gap 6.3 mEq/L (5-15); Aspartate Amino Transferase 27 U/L (14-36); Bilirubin,Total 0.5 mg/dl (0.2-1.3); Calcium 9.8 mg/dl (8.4-10.2); Carbon Dioxide 21 mmol/L (22.0-30.0); Globulin 2.7 g/dL (1.3-3.2); Glucose 87 mg/dl (74-100)
[2024-11-14 19:46] LABS: Uric Acid 5.2 mg/dl (2.5-6.2)
[2024-11-14] MEDS: ACETAMINOPHEN 500MG TAB 1000 MG PO (19:56)
[2024-11-14] MEDS: FAMOTIDINE 20MG TABLET 20 MG PO (19:57)
[2024-11-14] MEDS: CALCIUM CARBONATE 500MG CHEWTAB 1000 MG PO (19:57)
== END 2024-11-14 20:39 | disposition home or self-care (01) ==
LOC: OBOUT 17:30 → OB 17:30
PROVIDERS: PCP Nurse Practitioner; Visit Provider Obstetrics & Gynecology
DX: O26.893 Other specified pregnancy related conditions, third trimester (principal); Z3A.34 34 weeks gestation of pregnancy; R03.0 Elevated blood-pressure reading, without diagnosis of hypertension; O12.03 Gestational edema, third trimester
CPT/HCPCS: 36415; 80053; 84550; 85025; G0463

== ENCOUNTER 2024-11-15 21:47 | Observation (INO) | payer MEDICAID, SELFPAY ==
[2024-11-15 20:58] VITALS: BP 126/93; PULSE 117; RESP 20; TEMP 37.3; O2SAT 98; BMI 32.9
[2024-11-15 22:07] LABS: Basophils % 0.3 % (0.1-2.0); Eosinophils % 0.4 % (0.1-12.0); Hematocrit 33.3 % (37.0-47.0); Hemoglobin 11.2 g/dL (12.2-16.2); Immature Granulocytes % 1.8 %; Lymphocytes # 1.8 K/mm3 (0.7-4.5); Lymphocytes % 16.3 % (10-50); Mean Corpuscular HGB Conc 33.6 g/dL (31.8-35.4); Mean Corpuscular Hemoglobin 31.6 pg (27.0-31.2); Mean Corpuscular Volume 94.1 fl (81-99); Monocytes # 0.7 K/mm3 (0.1-1.0); Monocytes % 6.1 % (1.7-9.3); Neutrophils # 8.2 K/mm3 (1.8-7.8); Neutrophils % 75.1 % (37.0-80.0); Nucleated Red Blood Cells # 0 10^3/uL; Nucleated Red Blood Cells % 0 %; Platelet Count 165 K/mm3 (142-424); Red Blood Count 3.54 M/mm3 (4.20-5.40); Red Cell Distribution Width 19.2 % (11.5-17.5); Red Cell Distribution Width-SD 65.2 fL
[2024-11-15 22:10] LABS: Albumin Level 3.4 g/dl (3.5-5.0); Potassium 3.2 mmoL/L (3.5-5.1); Sodium 134 mmol/L (136-145)
[2024-11-15 22:13] LABS: Alanine Aminotransferase 14 U/L (12-78); Albumin/Globulin Ratio 1.2 (1.1-1.8); Alkaline Phosphatase 68 U/L (38-126); Aspartate Amino Transferase 25 U/L (14-36); Bilirubin,Total 0.4 mg/dl (0.2-1.3); Blood Urea Nitrogen 7 mg/dl (7-17); Carbon Dioxide 23 mmol/L (22.0-30.0); Creatinine Clearance Estimated 172 mL/min (50-200); Estimated Glomerular Filt Rate 115 ml/min (>60); GFR (African American) 139 ML/MIN (>60); Globulin 2.8 g/dL (1.3-3.2); Total Protein,Serum 6.2 g/dl (6.3-8.2)
[2024-11-15 22:14] LABS: Calcium 9.7 mg/dl (8.4-10.2); Glucose 80 mg/dl (74-100)
[2024-11-15] MEDS: CALCIUM CARBONATE 500MG CHEWTAB 1000 MG PO (22:15)
[2024-11-15 22:17] LABS: Uric Acid 6.8 mg/dl (2.5-6.2)
[2024-11-15 22:22] VITALS: BP 128/82; PULSE 107
[2024-11-15] MEDS: FAMOTIDINE 20MG TABLET 20 MG PO (22:23)
[2024-11-15] MEDS: ACETAMINOPHEN 500MG TAB 1000 MG PO (22:23)
[2024-11-15] MEDS: CYCLOBENZAPRINE 10MG TABLET 5 MG PO (22:24)
[2024-11-15 22:26] LABS: Anion Gap 9.2 mEq/L (5-15); Chloride 105 mmol/L (98-107)
[2024-11-15] MEDS: ONDANSETRON 4MG/2ML VIAL 4 MG IV (22:33)
[2024-11-15 22:46] LABS: Microscopic, Urine URINE MICROSCOPIC (MICROSCOPIC)
[2024-11-15 22:49] LABS: Appearance,Urine CLEAR (Clear); Bilirubin,Urine Negative (Negative); Blood, Urine 1+ (Negative); Color,Urine YELLOW (Yellow); Glucose,Urine (UA) Negative (Negative); Ketones,Urine Negative (Negative); Leukocyte Esterase,Urine Negative (Negative); Nitrate,Urine Negative (Negative); Protein,Urine Negative (Negative); Urobilinogen,Urine 0.2 EU/dl (0.2)
[2024-11-15 22:55] VITALS: BP 165/76; PULSE 103
[2024-11-15 22:55] LABS: Creatinine,Urine Random 105 mg/dL (Not Estab.)
[2024-11-15 23:00] LABS: WBC,Urine Occasional #/hpf (0-3)
[2024-11-15 23:01] LABS: Bacteria,Urine Trace /lpf
[2024-11-15 23:16] VITALS: BP 123/64; PULSE 88
[2024-11-15 23:20] LABS: Activated Partial Thrombo Time 24.8 seconds (22.8-30.6); INR 0.87 (0.9-1.1); Prothrombin Time 9.9 seconds (10.1-12.5)
[2024-11-15 23:24] VITALS: BP 125/84; PULSE 118
[2024-11-15 23:53] VITALS: BP 105/57; PULSE 93
[2024-11-16] MEDS: QUETIAPINE 25MG TABLET 50 MG PO (00:15)
[2024-11-16 03:46] LABS: Fibrinogen 376 mg/dL (229.9-363.5)
[2024-11-16 04:50] VITALS: BP 114/67; PULSE 82; RESP 16; TEMP 36.9; O2SAT 99
[2024-11-16] MEDS: ACETAMINOPHEN 500MG TAB 1000 MG PO (05:02)
[2024-11-16 08:36] VITALS: BP 131/76; PULSE 96; RESP 17; TEMP 36.8; O2SAT 99
[2024-11-16] MEDS: CYCLOBENZAPRINE 10MG TABLET 5 MG PO (09:13)
[2024-11-16 09:34] LABS: Basophils % 0.3 % (0.1-2.0); Eosinophils % 0.5 % (0.1-12.0); Hematocrit 30.8 % (37.0-47.0); Hemoglobin 10.2 g/dL (12.2-16.2); Immature Granulocytes # 0.06 10^3uL; Immature Granulocytes % 0.8 %; Lymphocytes # 1.4 K/mm3 (0.7-4.5); Lymphocytes % 17.9 % (10-50); Mean Corpuscular HGB Conc 33.1 g/dL (31.8-35.4); Mean Corpuscular Hemoglobin 31.4 pg (27.0-31.2); Mean Corpuscular Volume 94.8 fl (81-99); Mean Platelet Volume 11.9 fl (7.4-10.4); Monocytes # 0.6 K/mm3 (0.1-1.0); Monocytes % 7.9 % (1.7-9.3); Neutrophils # 5.8 K/mm3 (1.8-7.8); Neutrophils % 72.6 % (37.0-80.0); Nucleated Red Blood Cells # 0 10^3/uL; Nucleated Red Blood Cells % 0 %; Platelet Count 157 K/mm3 (142-424); Red Blood Count 3.25 M/mm3 (4.20-5.40); Red Cell Distribution Width 19.2 % (11.5-17.5)
[2024-11-16 09:46] LABS: Alanine Aminotransferase 13 U/L (12-78); Albumin/Globulin Ratio 1.2 (1.1-1.8); Alkaline Phosphatase 63 U/L (38-126); Anion Gap 4.1 mEq/L (5-15); Aspartate Amino Transferase 23 U/L (14-36); Bilirubin,Total 0.5 mg/dl (0.2-1.3); Blood Urea Nitrogen 5 mg/dl (7-17); Calcium 8.5 mg/dl (8.4-10.2); Carbon Dioxide 22 mmol/L (22.0-30.0); Chloride 108 mmol/L (98-107); Creatinine Clearance Estimated 172 mL/min (50-200); Estimated Glomerular Filt Rate 115 ml/min (>60); GFR (African American) 139 ML/MIN (>60); Globulin 2.5 g/dL (1.3-3.2); Glucose 97 mg/dl (74-100); Potassium 3.1 mmoL/L (3.5-5.1); Sodium 131 mmol/L (136-145); Total Protein,Serum 5.5 g/dl (6.3-8.2); Uric Acid 7.6 mg/dl (2.5-6.2)
== END 2024-11-16 10:34 | disposition left against medical advice (07) ==
LOC: OBOUT 21:48 → OB 21:48
PROVIDERS: Admitting Provider Obstetrics & Gynecology; PCP Nurse Practitioner; Visit Provider Obstetrics & Gynecology
DX: O36.8130 Decreased fetal movements, third trimester, not applicable or unspecified (principal); Z3A.34 34 weeks gestation of pregnancy; O13.3 Gestational [pregnancy-induced] hypertension without significant proteinuria, third trimester; O60.03 Preterm labor without delivery, third trimester
CPT/HCPCS: 36415; 59025; 80053; 81001; 82570; 84156; 84550; 85025; 85384; 85610; 85730; G0378; J2405

== ENCOUNTER 2024-11-18 13:59 | Outpatient (CLI) | payer MEDICAID, SELFPAY ==
--- NOTE | 2024-11-18 14:00 | US_ITS ---
PROCEDURE: US OB BIOPHYSICAL PROFILE CLINICAL INDICATION: needs 11/18/24 for Gestational hypertension COMPARISON: US US OB TRANSVAGINAL from 05/28/2024 US US OB /MATERNAL DETAIL from 08/05/2024 US US OB FOLLOW UP from 10/01/2024 FINDINGS: Transabdominal sonographic images of the uterus were obtained. From her established due date she is 35weeks 4days. The following parameters are obtained: Viable Fetus in the cephalic presentation with a posterior placenta grade 2. Average ultrasound age is 34weeks 4days Estimated weight 2,659g, 5 lb 14 oz Cervix measures 4.51 cm. Measurements: heart Rate = 136bpm BPD = 32weeks 6days, <2 percentile HC = 33weeks 2days, <2 percent AC = 36weeks 3days, 80 percentile FL = 35weeks 3days, 38 percentile HC/AC is 0.92 FL/BPD is 0.85 FL/AC is 0.21 43 percentile Amniotic fluid index: 4.1cm, MVP 3.15 cm Qualitative AFV:0 Breathing movements: 2 Gross Body Movements: 2 Tone: 2 Biophysical profile score: 6 Doppler evaluation of the umbilical artery: SD ratio: 2.04-3.29 Resistive index: 0.62 No obvious anomalies evident.Kidneys, four-chamber heart, three-vessel cord appear normal. IMPRESSION: 1. Viable fetus in the cephalic presentation with a posterior placenta grade 2. 2. The fluid is low with an amniotic fluid index 4.1 cm. MVP is 3.15 cm but there is no 2 cm x 2 cm pocket. 3. Biophysical profile is 6/8 with good breathing movement and movement seen. Two points off for fluid. 4. SD ratio is normal 2.04-3.29. 5. There has been good interval growth with the fetus currently 43rd percentile. The head circumference is difficult to obtain but is less than the 2nd percentile. 6. Limited anatomical scan appears normal. 7. Findings were discussed with Dr. Fritz. Dictated by: Chandler Valadez MD 11/18/2024 15:15 Chandler Valadez MD in [facility] 11/18/2024 15:15
== END 2024-11-18 23:59 | disposition home or self-care (01) ==
LOC: RAD 14:00
PROVIDERS: PCP Nurse Practitioner; Visit Provider Obstetrics & Gynecology
DX: O13.9 Gestational [pregnancy-induced] hypertension without significant proteinuria, unspecified trimester (principal); Z3A.35 35 weeks gestation of pregnancy
CPT/HCPCS: 76816; 76819; 76820

== ENCOUNTER 2024-11-18 16:05 | Outpatient (CLI) | payer MEDICAID, SELFPAY ==
[2024-11-18 16:15] VITALS: BMI 33.3
[2024-11-18 16:58] LABS: Microscopic, Urine URINE MICROSCOPIC (MICROSCOPIC)
[2024-11-18] MEDS: BETAMETHASONE ACET/PHOS 6MG/ML 5ML MDV 12 MG IM (17:00)
[2024-11-18 17:01] LABS: Bilirubin,Urine Negative (Negative); Blood, Urine 1+ (Negative); Color,Urine YELLOW (Yellow); Glucose,Urine (UA) Negative (Negative); Ketones,Urine Negative (Negative); Leukocyte Esterase,Urine Negative (Negative); Nitrate,Urine Negative (Negative); Protein,Urine Negative (Negative); Specific Gravity, Urine 1.015 (1.005-1.030); Urobilinogen,Urine 0.2 EU/dl (0.2)
[2024-11-18 17:16] LABS: Appearance,Urine Slightly Cloudy (Clear)
[2024-11-18 17:20] LABS: Amorphous Sediment,Urine 2+ /lpf; Bacteria,Urine 4+ /lpf
--- NOTE | 2024-11-18 17:25 | P.HPDS_ITS ---
General Admission date:: 11/18/24 Discharge date: 11/18/24 *Admission Date: 11/18/24 *Chief complaint: LOW LANCE *History of present illness: Phil Enamorado 34-year-old -0-1-3 who presented to the office at 35 and 2 weeks gestation. I spoke to [facility] who recommended admission, steroids, repeat LANCE with possible delivery on or Sunday. Patient agreed with this decision. She was sent to labor and delivery and after discussions with labor and delivery and pediatricians decision was made to transfer to a tertiary care center with a NICU - This has been complicated by preeclampsia. She has not had any severe range blood pressures or indications for IV medications. - This has also been complicated by insomnia and anxiety. This has been complicated by tobacco use - She has had 2 vaginal deliveries and 2 deliveries. She lost 1 infant and has 3 living children. She desires a repeat with bilateral salpingectomy. [facility] Disclaimer: The information contained in this section may have been updated after the patient was seen, as this information can be updated by other users. Medical History History of depression History of anxiety History of ADHD Personal history of kidney stones Surgical History History of delivery Family History Other No significant family history Social History Smoking Status: Current every day smoker alcohol intake: never current occupational status: employed Travel in the last 8 weeks?: None Have you lived/traveled outside US in past 30 days?: No Contact w/someone who lives/traveled outside US past 30 days?: No Exposure to someone with infectious disease in past 14 days?: No Do you have a fever (greater than 100.4 F or 38 C)?: No Have you tested positive for COVID-19?: No Exposed to someone with COVID-19 in past 14 days?: No Do you have a sore throat?: No Do you have a cough?: No Do you have any weakness?: No Do you have any diarrhea?: No Are you experiencing any unusual bleeding?: No Do you have any muscle aches/pain?: No Do you have any abdominal pain?: No Are you experiencing loss of taste or smell?: No Other Medical History Have you received the Flu Vaccine for this season: No Have you received the Pneumonia Vaccine: No Review of Systems Review of Systems Review of systems (narrative): Review of Systems Constitutional: Denies fever, chills, and sweats Eyes: Denies vision change/ pain Respiratory: Denies cough and shortness of breath Cardiovascular: Denies chest pain and lightheadedness Gastrointestinal: Denies significant abdominal pain or right upper quadrant pain. Denies nausea, vomiting. Genitourinary: Denies dysuria and incontinence Musculoskeletal: Denies shoulder pain and back pain Neurological: Denies change in speech or headaches Exam Data for Last 24 hours Vital signs and Labs for Last 24 Hours: Laboratory Results - last 24 hr 11/18/24 16:13: Urine Color Yellow, Urine Appearance Slightly cloudy, Urine pH 7.0, Ur Specific [place] 1.015, Urine Protein Negative, Urine Glucose (UA) Negative, Urine Ketones Negative, Urine Blood 1+ A, Urine Nitrate Negative, Urine Bilirubin Negative, Urine Urobilinogen 0.2, Ur Leukocyte Esterase Negative, Urine RBC 5-10, Urine WBC 5-10, Ur Squamous Epith Cells 5-10, Amorphous Sediment 2+, Urine Bacteria 4+ I & O for Last 24 hours: Intake & Output 11/15/24 11/16/24 11/17/24 11/18/24 23:59 23:59 23:59 23:59 Weight 182 lb Narrative: General: patient is alert oriented in no acute distress and responds appropriately to questions. HEENT: NCAT, EOMI, moist mucous membranes, neck supple with full ROM Cardiovascular: RRR +S1/S2, no murmurs or rubs Pulmonary: Clear to auscultation bilaterally, nonlabored breathing, symmetric chest rise Abdominal: Gravid abdomen appropriate for gestation. No guarding, rebound, or tenderness noted. Extremities: trace edema, no tenderness or cyanosis noted Skin: Normal turgor, intact, warm. Negative for erythema, pallor, petechia, or lesions Neurologic: Negative for sensory or motor deficit Psychiatric: Normal affect, normal thought process, good judgment and insight, no depression or anxious mood appreciated. *Routine HEENT Exam Head: Present normocephalic and atraumatic Eye: Present EOMI, PERRL and normal accommodation; Absent conjunctival icterus, scleral injection, nystagmus or exophthalmos ENT: Present mucous membranes moist *Routine Respiratory Exam Respiratory: Present CTA bilaterally, normal respiratory effort, able to speak in complete sentences and symmetric chest movement; Absent accessory muscle use, decreased breath sounds, rales, respiratory distress, wheezes, distant breath sounds or diminished air movement *Routine Cardiovascular Exam Cardiovascular: Present RRR, Normal S1 and Normal S2; Absent murmur or gallop *Routine Abdominal Exam Abdominal: Present soft and normoactive bowel sounds; Absent tenderness, distended, rebound or guarding *Routine Rectal Exam Rectal:: deferred *Routine Genitalia Exam Genitalia:: normal female Meds Home Medications and Allergies Home Medications ?Medication ?Instructions ?Recorded ?Confirmed ?Type quetiapine 50 mg tablet (Seroquel) 50 mg PO DAILY #90 tabs 09/09/24 11/18/24 Rx vit no.95-ferrous See Rx Instructions .Route 09/19/24 11/18/24 Rx fumarate 28 mg-folic acid 800 mcg .COMPLEX #90 tabs tablet () New Prescriptions to Start Prescriptions: Allergies Allergy/AdvReac Type Severity Reaction Status Date / Time Penicillins Allergy Intermediate Hives Verified 11/18/24 14:58 Hospital Course Hospital Course Hospital Course: Patient was sent over from the office for admission and transfer to a tertiary care center for planned delivery prior to 36 weeks gestation. Her has been complicated by preeclampsia. She was triaged and started on labetalol for gestational hypertension. We discussed the risk of this intervention. The patient has not had any severe range blood pressures during admission or in the office. She denies any headaches, vision changes, right upper quadrant pain. On ultrasound today the BPP was 6 out of 8, to offer fluid. Patient desires a repeat delivery with bilateral salpingectomy. 24-hour urine resulted on 11/14/2024 at 368 Previous urine protein to creatinine ratio on 11/11/2024 was 0.07 Results Data Completed and Pending Labs on day of discharge: Labs from last 24 hours 11/18/24 16:13 Urine Color Yellow Urine Appearance Slightly cloudy Urine pH 7.0 Ur Specific [place] 1.015 Urine Protein Negative Urine Glucose (UA) Negative Urine Ketones Negative Urine Blood 1+ A Urine Nitrate Negative Urine Bilirubin Negative Urine Urobilinogen 0.2 Ur Leukocyte Esterase Negative Urine RBC 5-10 Urine WBC 5-10 Ur Squamous Epith Cells 5-10 Amorphous Sediment 2+ Urine Bacteria 4+ DS: Diagnosis Discharge Diagnosis (1) Preeclampsia: Status: Acute Code(s): O14.90 - Unspecified pre-eclampsia, unspecified trimester Discharge Plan Disposition Patient Disposition: Xfer Short-Term Hosp Follow up Plan Prescriptions/Medication Reconciliation: Continued quetiapine [Seroquel] 50 mg tablet 50 mg PO DAILY Qty: 90 1RF PNV cmb#95-ferrous fumarate-FA [] 28 mg iron- 800 mcg tablet See Rx Instructions .ROUTE .COMPLEX Qty: 90 12RF Dose Instruction: TAKE 1 TABLET BY MOUTH EVERY DAY Rx Instructions: TAKE 1 TABLET BY MOUTH EVERY DAY Discontinued labetalol 100 mg tablet 200 mg PO BID Qty: 60 2RF Problem Reconciliation Problems Reviewed?: Yes Patient Discharge Instructions ACTIVITY: Continue current activity DIET: regular diet Print Language: Cymro Providers Primary Care Provider: Beverly Shook Attending Provider: Julianne Fritz
--- NOTE | 2024-11-18 17:46 | PC.NURSE ---
Active Medications Generic Name Dose Route Start Last Admin Trade Name Freq PRN Reason Stop Dose Admin Betamethasone Acet/Betameth SodPhos 12 mg 11/18/24 17:00 11/18/24 17:00 Betamethasone Acet/Phos 6mg/Ml 5ml Mdv IM 11/19/24 17:01 12 mg Q24H FRANTZ Administration
[2024-11-18 17:47] VITALS: BMI 33.3
--- NOTE | 2024-11-18 17:47 | PC.NURSE ---
Laboratory Tests 11/18/24 16:13 Urine Color Yellow Urine Appearance Slightly cloudy Urine pH 7.0 Ur Specific [place] 1.015 Urine Protein Negative Urine Glucose (UA) Negative Urine Ketones Negative Urine Blood 1+ A Urine Nitrate Negative Urine Bilirubin Negative Urine Urobilinogen 0.2 Ur Leukocyte Esterase Negative Urine RBC 5-10 Urine WBC 5-10 Ur Squamous Epith Cells 5-10 Amorphous Sediment 2+ Urine Bacteria 4+
== END 2024-11-18 18:30 | disposition short-term general hospital (02) ==
LOC: OBOUT 16:07 → OB 16:08
PROVIDERS: PCP Nurse Practitioner; Visit Provider Obstetrics & Gynecology
DX: O14.93 Unspecified pre-eclampsia, third trimester (principal); O13.3 Gestational [pregnancy-induced] hypertension without significant proteinuria, third trimester; Z3A.36 36 weeks gestation of pregnancy
CPT/HCPCS: 81001; 87086; G0463; J0702

== ENCOUNTER 2024-11-21 14:45 | Outpatient (CLI) | payer MEDICAID, SELFPAY ==
[2024-11-21 15:00] VITALS: BP 147/82; PULSE 89; RESP 20; TEMP 37.2; O2SAT 98; BMI 33.3
--- NOTE | 2024-11-21 15:07 | US_ITS ---
PROCEDURE INFORMATION: Exam: US Biophysical Profile Without Non-Stress Test Exam date and time: 11/21/2024 3:13 PM Age: 34 years old Clinical indication: Other: HTN , concern lance; ; Additional info: Concern for low fluid, HTN in TECHNIQUE: Imaging protocol: US biophysical profile without non-stress testing. COMPARISON: US OB BIOPHYSICAL PROFILE 11/18/2024 2:09 PM FINDINGS: Amniotic fluid index: LANCE is within lower limits of normal measured at 5.31 cm. BIOPHYSICAL PROFILE: breathing (BPP): 2 /2 gross body movement (BPP): 2 /2 tone (BPP): 2 /2 Amniotic fluid (BPP): 2 /2 Biophysical profile score (BPP): 8 MATERNAL ANATOMY: Cervix: Cervical length measures 3.44 cm. IMPRESSION: Normal biophysical profile 02/13
[2024-11-21 15:22] VITALS: BP 133/78
== END 2024-11-21 15:57 | disposition home or self-care (01) ==
LOC: OBOUT 14:46 → OB 14:46
PROVIDERS: PCP Nurse Practitioner; Visit Provider Obstetrics & Gynecology
DX: O13.3 Gestational [pregnancy-induced] hypertension without significant proteinuria, third trimester (principal); Z3A.35 35 weeks gestation of pregnancy
CPT/HCPCS: 59025; 76811; 76819; 76820

== ENCOUNTER 2024-11-25 16:28 | Outpatient (CLI) | payer MEDICAID, SELFPAY | END 2024-11-25 23:59 | disposition home or self-care (01) | LOC: LAB.DROPOF 16:28 | PROVIDERS: PCP Obstetrics & Gynecology; Visit Provider Obstetrics & Gynecology | DX: O16.3 Unspecified maternal hypertension, third trimester (principal); O14.93 Unspecified pre-eclampsia, third trimester; Z3A.36 36 weeks gestation of pregnancy | CPT/HCPCS: 86403 ==

== ENCOUNTER 2024-11-27 14:20 | Outpatient (CLI) | payer MEDICAID, SELFPAY ==
--- NOTE | 2024-11-27 14:30 | US_ITS ---
PROCEDURE: US OB BIOPHYSICAL PROFILE CLINICAL INDICATION: PIH COMPARISON: US US OB TRANSVAGINAL from 05/28/2024 US US OB /MATERNAL DETAIL from 08/05/2024 US OB FOLLOW UP from 10/01/2024 US OB BIOPHYSICAL PROFILE from 11/18/2024 US OB BPP W/FET-MAT S/D from 11/21/2024 FINDINGS: Transabdominal sonographic images of the uterus were obtained. From her established due date she is 36weeks 6days. The following parameters are obtained: Viable Fetus in the cephalic presentation with a posterior placenta grade 2. Measurements: heart Rate = 138bpm The cervix measures 2.72 cm Amniotic fluid index: 3.98cm, MVP 2.36. There was a single pocket that appear to measure 2 cm x 2 cm. Qualitative AFV:2 Breathing movements: 2 Gross Body Movements: 2 Tone: 2 Biophysical profile score: 8 No obvious anomalies evident.Kidneys, profile, stomach, bladder, four-chamber heart, three-vessel cord appear normal. IMPRESSION: 1. Viable fetus in the cephalic presentation with a posterior placenta grade 2. 2. The fluid is low with an amniotic fluid index 3.98 cm, MVP 2.36. A single 2 cm x 2 cm pocket was seen. 3. Biophysical profile is 8/8 with good breathing movement and movement seen. 4. Limited anatomical scan appears normal. 5. Dr. Fritz was notified of the low fluid. Dictated by: Chandler Valadez MD 11/27/2024 19:10 Chandler Valadez MD in [place] 11/27/2024 19:10
== END 2024-11-27 23:59 | disposition home or self-care (01) ==
LOC: RAD 14:20
PROVIDERS: PCP Nurse Practitioner; Visit Provider Obstetrics & Gynecology
DX: O28.3 Abnormal ultrasonic finding on antenatal screening of mother (principal); O14.90 Unspecified pre-eclampsia, unspecified trimester; O13.9 Gestational [pregnancy-induced] hypertension without significant proteinuria, unspecified trimester; Z3A.36 36 weeks gestation of pregnancy
CPT/HCPCS: 76819

== ENCOUNTER 2024-11-28 05:26 | Inpatient (IN) | payer MEDICAID, SELFPAY ==
[2024-11-28] VITALS (8 sets, daily range): BP systolic 133–156; BP diastolic 67–97; PULSE 77–106; RESP 16–19; TEMP 36.5–36.9; O2SAT 98–100; BMI 32.7
[2024-11-28 06:23] LABS: Basophils % 0.2 % (0.1-2.0); Eosinophils # 0.1 Kmm3 (0.0-0.4); Eosinophils % 0.7 % (0.1-12.0); Hematocrit 32.2 % (37.0-47.0); Hemoglobin 10.6 g/dL (12.2-16.2); Immature Granulocytes # 0.12 10^3uL; Lymphocytes # 2.1 K/mm3 (0.7-4.5); Lymphocytes % 17.7 % (10-50); Mean Corpuscular HGB Conc 32.9 g/dL (31.8-35.4); Mean Corpuscular Hemoglobin 31.1 pg (27.0-31.2); Mean Corpuscular Volume 94.4 fl (81-99); Mean Platelet Volume 12.5 fl (7.4-10.4); Monocytes # 0.8 K/mm3 (0.1-1.0); Monocytes % 6.4 % (1.7-9.3); Nucleated Red Blood Cells # 0.02 10^3/uL; Nucleated Red Blood Cells % 0.2 %; Platelet Count 178 K/mm3 (142-424); Red Blood Count 3.41 M/mm3 (4.20-5.40); Red Cell Distribution Width 18.3 % (11.5-17.5); Red Cell Distribution Width-SD 62.9 fL; White Blood Count 12.1 K/mm3 (4.8-10.8)
[2024-11-28 06:32] LABS: Anion Gap 8.8 mEq/L (5-15); Blood Urea Nitrogen 9 mg/dl (7-17); Calcium 9.2 mg/dl (8.4-10.2); Carbon Dioxide 21 mmol/L (22.0-30.0); Chloride 108 mmol/L (98-107); Creatinine Clearance Estimated 205 mL/min (50-200); Estimated Glomerular Filt Rate 142 ml/min (>60); GFR (African American) 172 ML/MIN (>60); Glucose 102 mg/dl (74-100); Potassium 3.8 mmoL/L (3.5-5.1); Sodium 134 mmol/L (136-145)
[2024-11-28 06:43] LABS: Microscopic, Urine URINE MICROSCOPIC (MICROSCOPIC)
[2024-11-28 06:52] LABS: Appearance,Urine SL CLOUDY (Clear); Bilirubin,Urine Negative (Negative); Blood, Urine 2+ (Negative); Color,Urine YELLOW (Yellow); Glucose,Urine (UA) Negative (Negative); Ketones,Urine Negative (Negative); Leukocyte Esterase,Urine Negative (Negative); Nitrate,Urine Negative (Negative); Protein,Urine TRACE (Negative); Specific Gravity, Urine 1.015 (1.005-1.030); Urobilinogen,Urine 0.2 EU/dl (0.2)
--- NOTE | 2024-11-28 07:13 | P.PNANES_ITS ---
[facility] Disclaimer: The information contained in this section may have been updated after the patient was seen, as this information can be updated by other users. Medical History History of depression History of anxiety History of ADHD Personal history of kidney stones Surgical History History of delivery Family History Other No significant family history Social History Smoking Status: Current every day smoker alcohol intake: never substance use type: denies use current occupational status: previously employed Travel in the last 8 weeks?: None [facility] Anesthesia Checklist Patient Identification Patient Identification: Arm Band and Verbal (Name & ) Structural Data Admitted From: Home Planned Operative Procedure/s: Consent for Planned Operative Procedure(s) Verified: Yes Verified Documents: Surgical Consent NPO Status Verified Time NPO: 00:00 Chart Verification Results Verified: CBC and BMP Additional verifications Patient : Yes Anesthesia Reactions: No Airway Assessment Mallampati Score:: Class II C-Spine Mobility Assessed: Yes TMJ Mobility Assessed: Yes Dentition: Good Dentition Neurological Assessment Level of Consciousness: Awake, Alert and Appropriate Hx Seizures: No Numbness or tingling in extremities: No Anesthesia Plan Anesthesia Risk discussed: Yes Anesthesia Plan: Verified ASA Class: II Anesthesia Type: Epidural
--- NOTE | 2024-11-28 07:17 | P.CONPHA_ITS ---
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 -DANNIE SNYDERD
--- NOTE | 2024-11-28 07:17 | HMH.PHAINT1 ---
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 -DANNIE SNYDERD
[2024-11-28 07:18] LABS: Bacteria,Urine 3+ /lpf; WBC,Urine Occasional #/hpf (0-3)
[2024-11-28] MEDS: CLINDAMYCIN PHOSPHATE/D5W 900 MG/50 ML PIGGYBACK 100 MG IV (07:21)
[2024-11-28] MEDS: GENTAMICIN SULFATE 400 MG in 0.9 % SODIUM CHLORIDE 100 ML 100 MG IV (07:45)
[2024-11-28 08:06] LABS: Cord Blood PH 7.32 (7.35-7.45)
--- NOTE | 2024-11-28 08:46 | EXP.HP ---
History of Present Illness *Admission Date: 11/28/24 *Reason for visit:: delivery *History of present illness: Phil Enamorado is a 34-year-old at 36 weeks and 5 days gestation who presented to labor and delivery for a scheduled secondary to preeclampsia, oligohydramnios, and previous delivery. On presentation patient endorsed good movement and denies any leakage of fluid or vaginal bleeding. A-, antibody positive: Pending, rubella immune, hepatitis B negative, hepatitis C negative, RPR negative, HIV negative 1 hour GTT: 96 GBS pending [facility] Disclaimer: The information contained in this section may have been updated after the patient was seen, as this information can be updated by other users. Medical History History of depression History of anxiety History of ADHD Personal history of kidney stones Surgical History History of delivery Family History Other No significant family history Social History (Updated 11/28/24 @ 07:14 by Armand Worley CRNA) Smoking Status: Current every day smoker alcohol intake: never substance use type: denies use current occupational status: previously employed Travel in the last 8 weeks?: None Have you lived/traveled outside US in past 30 days?: No Contact w/someone who lives/traveled outside US past 30 days?: No Exposure to someone with infectious disease in past 14 days?: No Do you have a fever (greater than 100.4 F or 38 C)?: No Have you tested positive for COVID-19?: No Exposed to someone with COVID-19 in past 14 days?: No Do you have a sore throat?: No Do you have a cough?: No Do you have any weakness?: No Do you have any diarrhea?: No Are you experiencing any unusual bleeding?: No Do you have any muscle aches/pain?: No Do you have any abdominal pain?: No Are you experiencing loss of taste or smell?: No Other Medical History Have you received the Flu Vaccine for this season: No Have you received the Pneumonia Vaccine: No Review of Systems Review of Systems Review of systems (narrative): Review of Systems Constitutional: Denies fever, chills, and sweats Eyes: Denies vision change/ pain Respiratory: Denies cough and shortness of breath Cardiovascular: Denies chest pain and lightheadedness Gastrointestinal: Denies abdominal pain or contractions. Denies nausea, vomiting. Genitourinary: Denies dysuria and incontinence Musculoskeletal: Denies shoulder pain and back pain Neurological: Denies change in speech or headaches Meds Home Medications and Allergies Home Medications ?Medication ?Instructions ?Recorded ?Confirmed ?Type quetiapine 50 mg tablet (Seroquel) 50 mg PO DAILY #90 tabs 09/09/24 11/28/24 Rx labetalol 100 mg tablet 100 mg PO BID 11/25/24 11/28/24 History vit no.95-ferrous 1 tab PO DAILY 11/28/24 11/28/24 History fumarate 28 mg-folic acid 800 mcg tablet () New Prescriptions to Start Prescriptions: Allergies Allergy/AdvReac Type Severity Reaction Status Date / Time Penicillins Allergy Intermediate Hives Verified 11/27/24 15:19 Exam Data for Last 24 hours Vital signs and Labs for Last 24 Hours: Temp Pulse Resp BP Pulse Ox O2 Del Method 98.0 F 106 H 16 133/87 99 Room Air 11/28/24 06:26 11/28/24 06:26 11/28/24 06:26 11/28/24 06:26 11/28/24 06:26 11/28/24 06:26 Laboratory Results - last 24 hr 11/28/24 06:05: WBC 12.1 H, RBC 3.41 L, Hgb 10.6 L, Hct 32.2 L, MCV 94.4, MCH 31.1, MCHC 32.9, RDW 18.3 H, Plt Count 178, MPV 12.5 H, Neut % (Auto) 74.0, Lymph % (Auto) 17.7, [place] % (Auto) 6.4, Eos % (Auto) 0.7, Baso % (Auto) 0.2, Neut # (Auto) 9.0 H, Lymph # (Auto) 2.1, [place] # (Auto) 0.8, Eos # (Auto) 0.1, Baso # (Auto) 0.0, Sodium 134 L, Potassium 3.8, Chloride 108 H, Carbon Dioxide 21 L, Anion Gap 8.8, BUN 9, Creatinine 0.50 L, Estimated Creat Clear 205, Estimated GFR 142, Est GFR ( Amer) 172, Glucose 102 H, Calcium 9.2, Blood Type A Negative, Antibody Screen Positive 11/28/24 06:20: Urine Color Yellow, Urine Appearance Sl cloudy, Urine pH 6.0, Ur Specific [place] 1.015, Urine Protein Trace, Urine Glucose (UA) Negative, Urine Ketones Negative, Urine Blood 2+ A, Urine Nitrate Negative, Urine Bilirubin Negative, Urine Urobilinogen 0.2, Ur Leukocyte Esterase Negative, Urine RBC 5-10, Urine WBC Occasional, Ur Squamous Epith Cells 5-10, Urine Bacteria 3+ 11/28/24 08:02: Cord ABG pH 7.32 L I & O for Last 24 hours: Intake & Output 11/25/24 11/26/24 11/27/24 11/28/24 23:59 23:59 23:59 23:59 Weight 179 lb Narrative: General: patient is alert oriented in no acute distress and responds appropriately to questions. HEENT: NCAT, EOMI, moist mucous membranes, neck supple with full ROM Cardiovascular: RRR +S1/S2, no murmurs or rubs Pulmonary: Clear to auscultation bilaterally, nonlabored breathing, symmetric chest rise Abdominal: Gravid abdomen appropriate for gestation. No guarding, rebound, or tenderness noted. Extremities: trace edema, no tenderness or cyanosis noted. Appropriate bilateral lower extremity reflexes Skin: Normal turgor, intact, warm. Negative for erythema, pallor, petechia, or lesions Neurologic: Negative for sensory or motor deficit Psychiatric: Normal affect, normal thought process, good judgment and insight, no depression or anxious mood appreciated. *Routine HEENT Exam Head: Present normocephalic and atraumatic Eye: Present EOMI, PERRL and normal accommodation; Absent conjunctival icterus, scleral injection, nystagmus or exophthalmos ENT: Present mucous membranes moist *Routine Respiratory Exam Respiratory: Present CTA bilaterally, normal respiratory effort, able to speak in complete sentences and symmetric chest movement; Absent accessory muscle use, decreased breath sounds, rales, respiratory distress, wheezes, distant breath sounds or diminished air movement *Routine Cardiovascular Exam Cardiovascular: Present RRR, Normal S1 and Normal S2; Absent murmur or gallop *Routine Abdominal Exam Abdominal: Present soft and normoactive bowel sounds; Absent tenderness, distended, rebound or guarding *Routine Rectal Exam Rectal:: deferred *Routine Genitalia Exam Genitalia:: normal female Assessment and Plan *Assessment and plan (1) Preeclampsia: Status: Acute Category: Medical Code(s): O14.90 - Unspecified pre-eclampsia, unspecified trimester (2) Rh negative status during : Status: Acute Category: Medical Code(s): O26.899 - Other specified related conditions, unspecified trimester; Z67.91 - Unspecified blood type, Rh negative (3) Hypokalemia: Status: Acute Category: Medical Code(s): E87.6 - Hypokalemia (4) Oligohydramnios: Status: Acute Category: Medical Code(s): O41.00X0 - Oligohydramnios, unspecified trimester, not applicable or unspecified (5) Previous delivery affecting : Status: Acute Category: Surgical Code(s): O34.219 - Maternal care for unspecified type scar from previous delivery Plan #Previous delivery #36 weeks 5 days gestation - Monitor vitals - Admit to L&D for scheduled delivery - External FHR and TOCO monitor - Hemoglobin: 10.6, Plt: 178 - Plan for spinal anesthesia - Anticipate delivery of female infant with bilateral salpingectomy - Discussed the risk of NICU transfer #Preeclampsia #Oligohydramnios - Labs appropriate on admission - Discontinue all medications - No severe range blood pressures or indications for magnesium at this time - Monitor for signs and symptoms of severe preeclampsia Reviewed the risks benefits and alternatives to Repeat delivery. Patient continued to request delivery and bilateral salpingectomy. Discussed the risk of bleeding, infection injury to the surrounding structures. Patient consented to blood transfusion to medically necessary. Reviewed the rare risk of hysterectomy if bleeding is unable to be controlled. Discussed risk of infection, Phil has an allergy to penicillin and will receive clindamycin and gentamicin. Reviewed the risk of injury to surrounding structures including the bowel, bladder, reproductive organs, and neurovascular bundles. Patient voiced understanding. Discussed the increased risk with prior surgery and scarring. Patient and significant other voiced understanding desire to proceed
--- NOTE | 2024-11-28 08:53 | P.OP_ITS ---
Date of procedure: 11/28/24 Pre-op Diagnosis:: 1. 36 weeks 5days gestation, [place] 2. Preeclampsia 3. Oligohydramnios 4. History of delivery 5. Rh- Post-op Diagnosis:: 1. 36 weeks 5days gestation, [place] 2. Preeclampsia 3. Oligohydramnios 4. History of delivery 5. Rh- Procedure performed:: Repeat Delivery with bilateral salpingectomy Surgeon:: Julianne Fritz DO Washer Off(s):: Kashif Ng DO PATTERN LEASE INSPECTOR:: Other (Sd Berg) Anesthesia: spinal and epidural Estimated blood loss (mL): 600 Clinical Note:: Phil Enamorado is a 34-year-old -0-1-3 who presented for a scheduled repeat c esarean delivery and bilateral salpingectomy for indicated reasons above. She has been followed by M Operative findings:: 1. Live viable female infant: undecided. Weight: 6pounds 1ounces. 2751 g. Apgars 8 and 9 at 1 and 5 minutes respectively 2. Normal-appearing fallopian tubes and ovaries bilaterally 3. Significant and dense scarring of the bladder to the anterior uterine wall as well as the lower fascia Operative note:: Medications: Clindamycin and gentamicin Summary: Procedure explained in its entirety. The patient was counseled on the risks and benefits of section including bleeding, vascular injury, infection, and injury to the surrounding structures. Hemorrhage requiring life saving blood transfusion resulting in blood born viral infection or allergic reaction was explained and the patient consented to blood transfusion. Possible need for further operative measures prolonging recovery time and hospitalization reviewed to include hysterectomy. Procedure explained in its entirety and patient had no further questions. Consented to procedure. The patient was taken back to the operating room where adequate spinal anesthesia was obtained. Pneumatic compression stockings applied to lower extremities. Above antibiotics were administered for infection prophylaxis. She was placed in the dorsal supine position Urinary catheter was placed and found to be draining clear urine. The patient was prepped and draped in sterile fashion. Anesthesia was tested and and found to be adequate. A Pfannenstiel skin incision was made with the scalpel. Subcutaneous bleeding vessels were cauterized with the bovie. The incision was taken down to the fascia with the bovie. The fascia was knicked in the midline and sharply extended laterally. The superior aspect of the fascia was grasped with Kendra clamps and the rectus muscle was taken down with the Bovie. The rectus muscle was sharply dissected from the midline with Mayos. This process was repeated inferiorly. The rectus muscles were in the midline, peritoneum was identified and entered bluntly. There was significant scarring of the bladder to the peritoneum inferiorly. We were not able to dissect the peritoneum in rectus muscles down. This created a restrictive area for delivery and a the rectus muscles were incised near the superior tendon attachment on the fascia. This allowed for ample access for delivery. There was significant adhesions of the bladder to the lower uterine segment. These were taken down sharply with Metzenbaum scissors and carefully to avoid incidental cystotomy. Decision was made to make the incision just slightly above the lower uterine segment secondary to bladder adhesions. Esa O retractor was placed and the bladder was noted to be out of the operative field. Incision was then extended in a superior and inferior fashion by blunt separation. Membranes were ruptured revealing scant clear fluid. The fetus was in cephalic presentation. The head was carefully elevated out of the pelvis. Fundal pressure was applied when head was brought into incision. The infants head was delivered without difficulty. The shoulder and body followed without complication. Delivery occurred at 0754. The mouth and nose were suctioned with a bulb. The umbilical cord was clamped and cut after 60 seconds of delayed cord clamping. Infant was taken to warmer for evaluation by the formstone fitter. Cord blood and gases were collected. The placenta was delivered via fundal massage and sent for placental evaluation. IV Pitocin was initiated. Inside of the uterus was gently cleared of blood and clots with lap sponge. The hysterotomy was closed with 0 Vicryl in a running locked fashion. A second imbricating layer was placed. The lower uterine segment was visualized and noted to be hemostatic. The ovaries and tubes were found to be normal. The posterior aspect of the uterus was cleared of blood clot with a damp lap sponge. The distal portion of the right fallopian tube was grasped with Manan clamp and elevated away from surrounding structures. The Enseal device was inserted over mesosalpinx inferior to right distal fallopian tube and used to serially clamp, fulgurate, and transected the fallopian tube in its entirety. Hemostasis noted and the tube was passed off the operative field to be sent to pathology for further evaluation. This process was repeated on the contralateral side. Hemostasis noted. No bleeding was visualized at the fulguration site. The gutters were inspected bilaterally and cleared of blood and clots with lap sponges. The uterine incision was reinspected and there was slight bleeding noted at the left apex. This made hemostatic with a single simple interrupted 2-0 vicryl. Surgicel powder and Gelfoam were applied for added hemostatic prophylaxis. Esa O retractor was removed. The peritoneum was reapproximated using a 2-0 Monocryl in a nonlocked running fashion. The fascia was closed in a running nonlocked fashion using 0 PDS x2 meeting right of midline. Fascia was noted as not having gaps or defects. The subcutaneous fat was closed with 2-0 Monocryl interrupted sutures x3. Skin was closed with the INSORB suture in a subcuticular fashion. Patient tolerated the procedure well and all counts were correct x3, per nursing. Patient will receive tap blocks and then be transported to the OB PACU for recovery and infant bonding. Condition: stable Disposition: floor Specimens:: Live viable female placenta cord blood cord gasses Complications:: None
--- NOTE | 2024-11-28 09:06 | EXP.ANES.I ---
[facility] [place] [facility] Anesthesia Record Part I Anesthesia Record I Intake, IV Amount: 2,500 Hydration: Adequate Estimated blood loss (mL): 600 Urine output (mL): 0 Blood Products used (#): none Blood Pressure: 144/83 SaO2: 100 Pulse Rate: 78 Airway Patency: Patent Respiratory Rate: 16 Temperature: 97.7 F Patient is:: Awake and Stable Stable to PACU at:: 08:52
[2024-11-28] MEDS: OXYTOCIN/RINGERS LACTATE 30 UNITS/500 ML BAG 40 UNITS IV (10:00)
[2024-11-28] MEDS: METHYLERGONOVINE MALEATE 0.2MG/ML INJ 0.2 MG IM (10:40)
[2024-11-28 11:09] LABS: RPR W/RFX Titers Nonreactive (Nonreactive)
[2024-11-28] MEDS: HYDROMORPHONE 2MG/ML SYRINGE 1 MG IV ×3 (11:17→23:06)
[2024-11-28] MEDS: miSOPROStoL 200 MCG TABLET 1000 MCG RC (11:24)
[2024-11-28] MEDS: OXYCODONE 5MG IMMEDIATE RELEASE TABLET 5 MG PO (14:20)
[2024-11-28] MEDS: ACETAMINOPHEN 500MG TAB 1000 MG PO ×2 (14:20→20:29)
[2024-11-28] MEDS: KETOROLAC 30MG/ML VIAL 30 MG IV ×2 (14:21→20:30)
[2024-11-28] MEDS: PRENATAL MULTIVITAMIN W/IRON 1 EACH PO (17:57)
[2024-11-28] MEDS: SENNA 8.6MG TABLET 8.6 MG PO (20:29)
[2024-11-28] MEDS: QUETIAPINE 100MG TABLET 50 MG PO (20:42)
[2024-11-28] MEDS: SIMETHICONE 80MG CHEWABLE TABLET 160 MG PO (23:08)
[2024-11-29] VITALS (24 sets, daily range): BP systolic 117–155; BP diastolic 56–81; PULSE 91–111; RESP 17–20; TEMP 36.6–37.1; O2SAT 96–100
[2024-11-29] MEDS: ACETAMINOPHEN 500MG TAB 1000 MG PO ×4 (02:32→20:50)
[2024-11-29] MEDS: KETOROLAC 30MG/ML VIAL 30 MG IV ×2 (02:32→10:41)
--- NOTE | 2024-11-29 07:17 | P.PN_ITS ---
Subjective *Date: 11/29/24 *Time: 07:17 Interval history: She is postop day 1 from a section. She is doing well. Her pain is reasonably well-controlled. She denies any chest pain or shortness of breath. Medical Exam Vital signs and Labs for Last 24 Hours: Vital Signs Temp Pulse Pulse Resp BP BP Pulse Ox 11/29/24 04:28 98.4 F 105 H 18 140/81 98 11/29/24 00:39 117/56 L 11/28/24 20:24 98.4 F 87 19 140/67 98 11/28/24 09:25 85 17 156/97 H 100 11/28/24 09:15 85 18 151/93 H 100 11/28/24 09:06 97.7 F 78 16 144/83 H 11/28/24 09:05 78 17 148/86 H 99 11/28/24 08:55 97.7 F 77 17 144/83 H 100 O2 Del Method 11/29/24 04:28 Room Air 11/29/24 00:39 11/28/24 20:24 Room Air 11/28/24 09:25 Room Air 11/28/24 09:15 Room Air 11/28/24 09:06 11/28/24 09:05 Room Air 11/28/24 08:55 Room Air Laboratory Results - last 24 hr 11/28/24 06:05: RPR w/Rflx to Titer Nonreactive, Blood Type A Negative, Antibody Screen Positive, Antibody Identification Anti-D, Crossmatch (AHG) See Detail 11/28/24 06:20: Urine Color Yellow, Urine Appearance Sl cloudy, Urine pH 6.0, Ur Specific [place] 1.015, Urine Protein Trace, Urine Glucose (UA) Negative, Urine Ketones Negative, Urine Blood 2+ A, Urine Nitrate Negative, Urine Bilirubin Negative, Urine Urobilinogen 0.2, Ur Leukocyte Esterase Negative, Urine RBC 5- 10, Urine WBC Occasional, Ur Squamous Epith Cells 5-10, Urine Bacteria 3+ 11/28/24 08:02: Cord ABG pH 7.32 L I & O for Labs for Last 24 Hours: Intake & Output 11/26/24 11/27/24 11/28/24 11/29/24 11:59 11:59 11:59 11:59 Intake Total 2500 / 2500 Balance 2500 / 2500 Weight 179 lb Head: Present normocephalic Neck: Present normal inspection Respiratory: Present normal respiratory effort; Absent accessory muscle use GI: Absent guarding Comments:: Her incision is clean and dry. Assessment and Plan *Assessment and plan (1) Previous delivery affecting : Status: Acute Category: Surgical Code(s): O34.219 - Maternal care for unspecified type scar from previous delivery (2) Oligohydramnios: Status: Acute Qualifiers: Fetus number: single or unspecified fetus Trimester: third trimester Qualified Code(s): O41.03X0 - Oligohydramnios, third trimester, not applicable or unspecified Category: Medical Code(s): O41.00X0 - Oligohydramnios, unspecified trimester, not applicable or unspecified (3) Preeclampsia: Status: Acute Qualifiers: Trimester: third trimester Qualified Code(s): O14.93 - Unspecified pre- eclampsia, third trimester Category: Medical Code(s): O14.90 - Unspecified pre-eclampsia, unspecified trimester (4) Elevated blood pressure affecting , antepartum: Status: Acute Category: Medical Code(s): O16.9 - Unspecified maternal hypertension, unspecified trimester (5) delivery delivered: Status: Acute Category: Medical Code(s): O82 - Encounter for delivery without indication (6) Rh negative status during : Status: Acute Qualifiers: Trimester: third trimester Qualified Code(s): O26.893 - Other specified related conditions, third trimester; Z67.91 - Unspecified blood type, Rh negative Category: Medical Code(s): O26.899 - Other specified related conditions, unspecified trimester; Z67.91 - Unspecified blood type, Rh negative Plan She is doing reasonably well post operatively. Her pain is is controlled. We will plan to send her home tomorrow.
[2024-11-29 07:34] LABS: Basophils % 0.2 % (0.1-2.0); Eosinophils # 0.1 Kmm3 (0.0-0.4); Eosinophils % 0.7 % (0.1-12.0); Immature Granulocytes # 0.08 10^3uL; Immature Granulocytes % 0.8 %; Lymphocytes # 1.7 K/mm3 (0.7-4.5); Lymphocytes % 17.5 % (10-50); Mean Corpuscular HGB Conc 31.9 g/dL (31.8-35.4); Mean Corpuscular Hemoglobin 30.7 pg (27.0-31.2); Mean Corpuscular Volume 96.3 fl (81-99); Mean Platelet Volume 12.1 fl (7.4-10.4); Monocytes # 0.7 K/mm3 (0.1-1.0); Monocytes % 7.4 % (1.7-9.3); Neutrophils # 7.1 K/mm3 (1.8-7.8); Neutrophils % 73.4 % (37.0-80.0); Nucleated Red Blood Cells # 0 10^3/uL; Nucleated Red Blood Cells % 0 %; Platelet Count 113 K/mm3 (142-424); Red Blood Count 2.15 M/mm3 (4.20-5.40); Red Cell Distribution Width-SD 62.7 fL; White Blood Count 9.6 K/mm3 (4.8-10.8)
[2024-11-29 07:39] LABS: Hematocrit 20.7 % (37.0-47.0); Hemoglobin 6.6 g/dL (12.2-16.2)
[2024-11-29] MEDS: HYDROMORPHONE 2MG/ML SYRINGE 1 MG IV (07:42)
[2024-11-29] MEDS: IBUPROFEN 400 MG TABLET 800 MG PO ×2 (10:41→17:02)
[2024-11-29] MEDS: OXYCODONE 5MG IMMEDIATE RELEASE TABLET 10 MG PO (12:12)
[2024-11-29] MEDS: SIMETHICONE 80MG CHEWABLE TABLET 160 MG PO (15:47)
[2024-11-29] MEDS: SENNA 8.6MG TABLET 8.6 MG PO (15:47)
[2024-11-29 16:29] LABS: Hemoglobin 9.4 g/dL (12.2-16.2)
[2024-11-29] MEDS: PRENATAL MULTIVITAMIN W/IRON 1 EACH PO (17:02)
[2024-11-29] MEDS: QUETIAPINE 100MG TABLET 50 MG PO (20:51)
[2024-11-30 04:22] VITALS: BP 124/73; PULSE 92; RESP 18; TEMP 36.7; O2SAT 98
[2024-11-30] MEDS: ACETAMINOPHEN 500MG TAB 1000 MG PO ×2 (04:24→08:53)
[2024-11-30] MEDS: IBUPROFEN 400 MG TABLET 800 MG PO (08:53)
--- NOTE | 2024-11-30 09:34 | P.DS_ITS ---
General Admission date:: 11/28/24 Discharge date: 11/30/24 HPI HPI HPI: Phil Enamorado is a 34-year-old at 36 weeks and 5 days gestation who presented to labor and delivery for a scheduled secondary to preeclampsia, oligohydramnios, and previous delivery. On presentation patient endorsed good movement and denies any leakage of fluid or vaginal bleeding. A-, antibody positive: Pending, rubella immune, hepatitis B negative, hepatitis C negative, RPR negative, HIV negative 1 hour GTT: 96 GBS pending Hospital Course Hospital Course Hospital Course: On November 28, 2024 she underwent a repeat lower segment transverse section and delivered a liveborn female child at 7:54 AM. The baby weighed 6 pounds 1 ounce and was 17 inches long. She had Apgars of 8 at 1 minute and 9 at 5 minutes. She has done well postoperatively and has remained afebrile throughout hospitalization. She is eating and drinking and ambulating. She is breast- feeding. Her lochia is normal. She has a Rh- blood and she will receive RhoGAM prior to discharge. She is rubella immune and works group B streptococcus unknown. She is discharged home to follow-up with Dr. Fritz in approximate 2 weeks time. She will continue with her vitamins and iron. She was given the usual instructions with strict limit her activity, driving and sexual activity. She was given instructions with respect to wound care. She was given a prescription for Percocet 5/325 number 14 tablets. Her condition on discharge is stable and improved. Exam Data for Last 24 hours Vital signs and Labs for Last 24 Hours: Temp Pulse Resp BP Pulse Ox O2 Del Method 98.1 F 92 H 18 124/73 98 Room Air 11/30/24 04:22 11/30/24 04:22 11/30/24 04:22 11/30/24 04:22 11/30/24 04:22 11/30/24 04:22 Laboratory Results - last 24 hr 11/28/24 06:05: Blood Type A Negative, Antibody Screen Positive, Crossmatch (AHG) See Detail 11/29/24 15:20: Hgb 9.4 L D, Hct 30.0 L I & O for Last 24 hours: Intake & Output 11/27/24 11/28/24 11/29/24 11/30/24 11:59 11:59 11:59 11:59 Intake Total 2500 / 2500 250 / 250 250 / 250 Balance 2500 / 2500 250 / 250 250 / 250 Weight 179 lb Microbiology Reports for the Last 24 Hours: Microbiology 11/28/24 07:30 Urine,[place] Urine Culture - Final No growth. 11/28/24 06:20 Urine,Clean [place] Urine Culture - Final Multiple organisms, suggests contamination. Constitutional Constitutional: no acute distress *Routine HEENT Exam Head: Present normocephalic *Routine Neck Exam Neck: Present full ROM *Routine Respiratory Exam Respiratory: Present normal respiratory effort; Absent accessory muscle use Results Data Completed and Pending Labs on day of discharge: Labs from last 24 hours 11/29/24 11/28/24 15:20 06:05 Hgb 9.4 L D Hct 30.0 L Blood Type A Negative Antibody Screen Positive Crossmatch (AHG) See Detail DS: Diagnosis Discharge Diagnosis (1) Previous delivery affecting : Status: Acute Code(s): O34.219 - Maternal care for unspecified type scar from previous delivery (2) Oligohydramnios: Status: Acute Code(s): O41.00X0 - Oligohydramnios, unspecified trimester, not applicable or unspecified Qualifiers: Fetus number: single or unspecified fetus Trimester: third trimester Qualified Code(s): O41.03X0 - Oligohydramnios, third trimester, not applicable or unspecified (3) Preeclampsia: Status: Acute Code(s): O14.90 - Unspecified pre-eclampsia, unspecified trimester Qualifiers: Trimester: third trimester Qualified Code(s): O14.93 - Unspecified pre- eclampsia, third trimester (4) Elevated blood pressure affecting , antepartum: Status: Acute Code(s): O16.9 - Unspecified maternal hypertension, unspecified trimester (5) delivery delivered: Status: Acute Code(s): O82 - Encounter for delivery without indication (6) Rh negative status during : Status: Acute Code(s): O26.899 - Other specified related conditions, unspecified trimester; Z67.91 - Unspecified blood type, Rh negative Qualifiers: Trimester: third trimester Qualified Code(s): O26.893 - Other specified related conditions, third trimester; Z67.91 - Unspecified blood type, Rh negative Meds Home Medications and Allergies Home Medications ?Medication ?Instructions ?Recorded ?Confirmed ?Type quetiapine 50 mg tablet (Seroquel) 50 mg PO DAILY #90 tabs 09/09/24 11/28/24 Rx labetalol 100 mg tablet 100 mg PO BID 11/25/24 11/28/24 History vit no.95-ferrous 1 tab PO DAILY 11/28/24 11/28/24 History fumarate 28 mg-folic acid 800 mcg tablet () oxycodone-acetaminophen 5 mg-325 1 tab PO Q6H PRN pain #14 tabs 11/30/24 Rx mg tablet New Prescriptions to Start Prescriptions: oxycodone-acetaminophen Chandler Valadez Allergies Allergy/AdvReac Type Severity Reaction Status Date / Time Penicillins Allergy Intermediate Hives Verified 11/27/24 15:19 Discharge Plan Disposition Patient Disposition: Home, Self-Care Discharge Order Discharge Orders: Discharge Order (Routine); Ordered 11/30/24 Ordered By: Chandler Valadez Follow up Plan Prescriptions/Medication Reconciliation: New oxycodone-acetaminophen 5-325 mg tablet 1 tab PO Q6H PRN (Reason: pain) Qty: 14 0RF Continued labetalol 100 mg tablet 100 mg PO BID quetiapine [Seroquel] 50 mg tablet 50 mg PO DAILY Qty: 90 1RF PNV cmb#95-ferrous fumarate-FA [] 28 mg iron- 800 mcg tablet 1 tab PO DAILY Problem Reconciliation Problems Reviewed?: Yes Patient Discharge Instructions ACTIVITY: No heavy lifting DIET: continue same diet Print Language: [place]ar[place] Providers Primary Care Provider: Beverly Shook Admit Provider: Julianne Fritz Attending Provider: Julianne Fritz
[2024-11-30] MEDS: RHO(D) IMMUNE GLOBULIN 1,500 UNIT (300MCG) SYRINGE 300 MCG IM (09:55)
--- NOTE | 2024-12-02 07:39 | P.PNANES_ITS ---
[facility] [place] Anesthesia Record Part II Anesthesia Record Part II Discharge Time: 09:22 Destination: OB Outpatient Service PACU nurse assessment reviewed?: Yes Patient Condition:: Good Anesthesia Complications:: None Swallowing reflex intact?: Yes Airway Patency: Patent Cyanosis?: No Blood Pressure: 148/86 SaO2: 99 Respiratory Rate: 17 Pulse Rate: 78 Temperature: 98 F Mental Status: Alert & Oriented Pain level:: 0 Nausea and/or vomitting:: None Intake, IV Amount: 1,500 Hydration: Adequate
[2024-12-02 07:40] VITALS: BP 148/86; PULSE 78; RESP 17; TEMP 36.6; O2SAT 99
== END 2024-11-30 11:44 | disposition home or self-care (01) | DRG 784 ==
PROVIDERS: Nurse Practitioner Obstetrics & Gynecology; Admitting Provider Obstetrics & Gynecology; PCP Nurse Practitioner; Visit Provider Obstetrics & Gynecology
PROC: 0UT70ZZ Resection of Bilateral Fallopian Tubes, Open Approach (ICD-10-PCS; CPT 59514; principal; 2024-11-28 07:30)
DX: O14.94 Unspecified pre-eclampsia, complicating childbirth (principal); O41.03X0 Oligohydramnios, third trimester, not applicable or unspecified; O34.211 Maternal care for low transverse scar from previous cesarean delivery; N85.8 Other specified noninflammatory disorders of uterus; Z3A.36 36 weeks gestation of pregnancy; Z37.0 Single live birth
CPT/HCPCS: 36415; 36430; 51702; 59025; 80048; 81001; 82800; 85014; 85018; 85025; 86592; 86850; 86870; 87086; 93005; 94761; G0283; J0666; J0736; J1100; J1171; J1580; J1885; J2250; J2405; J2790; J7120; P9016